=== PATIENT | male | born 1965 | race Caucasian/White ===

== ENCOUNTER → 2016-04-26 | Outpatient (CLI) | payer OTHER ==
[~2016-04-26] MED LIST: ALBU17IN INH; ALLE25CA; AMBI10TA PO; AMBI12.52 PO; ANDR1.62 TD; ASTE0.15; BENA25CA2 PO; BUPR75TA5 PO; BYST10TA PO; CALA240T PO; CARV12.5 PO; CARV6.25 PO; CEPH500T PO; CETI5CHW; CHLO125TA PO; CIPR500T3 PO; CLAR1TAB2 PO; CYMB60CA3 PO; DIPH25CA29 PO; DRIS1CAP PO; DULO30CA PO; EMLA2.5C EX; FAMO20TA PO; FENT12PA TOP; FLON0.054; FLON1SPR; HYDR-3713 PO; HYDR-3719 PO; HYDR12.55 PO; HYDR25TAB PO; IBUP600T26 PO; LIDO1OIN2 TOP; MAXA5TAB10 PO; MELO15TA3 PO; NIAC250C13 PO; OXYC1TAB23 PO; PRED20TAB PO; TEST5GEL2 INJ; TIZA4CAP3 PO; TIZA4TAB3 PO; TRAM50TA2 PO; TRIA1CR TOP; VERA120T2 PO; VERA180C PO; VITA-122 PO; VITA200016 PO; ZOLP5TAB PO
--- NOTE | 2016-05-20 01:54 | ECWPNPC ---
PATIENT NAME: PATRIZIA BARBOZA : 1965 GENDER: MALE VISIT DATE: 04/26/2016 DISCHARGE DATE: 04/26/16 1535 VISIT LOCKED DATE TIME: PHYSICIAN: DUNG ORTIZ RESOURCE: DUNG ORTIZ REASON FOR APPOINTMENT 1. NECK/BACK HISTORY OF PRESENT ILLNESS HISTORY OF PRESENT ILLNESS: PAIN THE PATIENT DESCRIBES THE PAIN... FALL RISK SCREENING: SCREENING :NO FALLS IN THE PAST YEAR TODAY'S VISIT: NOTES: RATES PAIN TODAY 9/10. HAD BEEN ABLE TO INCREASE ACTIVITY. NOTES MARKED INCREASE IN PAIN AFTER THE ACTIVITY. HAS HAD DIFFICULTY WITH [employer] BRAND OF LUNESTA THIS HAS NOT BEEN EFFECTIVE. NOTES POOR SLEEP AFFECTS PAIN CONTROL.. CURRENT MEDICATIONS TAKING BL BLOOD PRESSURE MONITOR STANDARD KIT DIRECTED APPLY TO ARM DX I10 DAILY OR DIRECTED TAKING FLONASE 50 MCG/ACT SUSPENSION 1 SPRAY IN EACH NOSTRIL NASALLY ONCE A DAY, NOTES: ANGELA TAKING CALAN SR 180 MG TABLET EXTENDED RELEASE 1 TABLET ORALLY TWICE A DAY TAKING CHLORTHALIDONE 25 MG TABLET 1/2 TABLET IN THE MORNING ORALLY ONCE A DAY TAKING FAMOTIDINE 40 MG TABLET 1 TABLET ORALLY ONCE A DAY NEEDED TAKING LUNESTA 3 MG TABLET 1 TABLET IMMEDIATELY BEFORE BEDTIME ORALLY BEFORE BEDTIME TAKING TRAMADOL HCL 50 MG TABLET 1 TABLET NEEDED ORALLY EVERY 4-6 HRS PRN PAIN MDD=6 TAKING LIDOCAINE 4 % CREAM APPLY SMALL AMOUNT TO PAINFUL AREAS EXTERNALLY FOUR TIMES DAILY TO HIP AND LOW BACK PAINFUL AREAS TAKING ALBUTEROL SULFATE (2.5 MG/3ML) 0.083% NEBULIZATION SOLUTION 3 ML INHALATION DIRECTED TAKING BENADRYL 25 MG CAPSULE 1 CAPSULE ORALLY ONCEA A DAY TAKING TIZANIDINE HCL 4 MG TABLET 2 CAPSULE ORALLY EVERY 8 HRS TAKING NORCO 10-325 MG TABLET 1 TABLET NEEDED ORALLY DAILY NEEDED FOR PAIN MDD=1 NOT-TAKING IBUPROFEN 600 MG TABLET 1 TABLET ORALLY EVERY 8 HOURS NEEDED HEAD AND NECK PAIN NOT-TAKING NEEDLES & SYRINGES 22G 1/2 INCH NEEDLES AND 3 ML SYRINGES NOT-TAKING METHYLPHENIDATE HCL 10 MG TABLET 1 TABLET ORALLY DAILY MDD=1, NOTES: (RITALIN) NOT-TAKING FLUTICASONE PROPIONATE 50 MCG/ACT SUSPENSION 1 SPRAY IN EACH NOSTRIL NASALLY ONCE A DAY NOT-TAKING LUNESTA 2 MG TABLET 1 TABLET IMMEDIATELY BEFORE BEDTIME ORALLY ONCE A DAY AT BEDTIME NOT-TAKING PREDNISONE 10 MG TABLET 1 TABLET ORALLY TAKE 5 TABX2 DAY, 4 TAB X2, 3 TABX 2 DAY, 2 TABX 2 DAY. 1 TABX 2 DAY NOT-TAKING BUPROPION HCL (XL) 150 MG TABLET EXTENDED RELEASE 24 HOUR 1 TABLET IN THE MORNING ORALLY ONCE A DAY NOT-TAKING VALIUM 5 MG TABLET 1 TABLET ORALLY TAKE 1 TAB ONE HOUR PRIOR TO TEST AND ONE ON ARRRIVAL. MDD=2 NOT-TAKING TRAMADOL HCL 50 MG TABLET 1-2 TABLET ORALLY EVERY 8 HRS PRN PAIN MDD=6 NOT-TAKING MELOXICAM 7.5 MG TABLET 1 TAB ORALLY ONCE A DAY NOT-TAKING ZOLPIDEM TARTRATE 10 MG TABLET 1 TABLET AT BEDTIME NEEDED ORALLY ONCE A DAY, NOTES: ASAD NOT-TAKING LORATADINE 10 MG TABLET 1 TABLET ORALLY ONCE A DAY NOT-TAKING TRIAMCINOLONE ACETONIDE 0.1 % CREAM 1 APPLICATION TO AFFECTED AREA EXTERNALLY TO AREAS ARMS AND LEGS TWICE A DAY NOT-TAKING VITAMIN D-3 2000 CAPSULE 1 CAPSULE ORALLY ONCE A DAY, NOTES: ANGELA NOT-TAKING ZOVIRAX 5 % CREAM 1 APPLICATION TO AFFECTED AREA EXTERNALLY FIVE TIMES A DAY MEDICATION LIST REVIEWED AND RECONCILED WITH THE PATIENT PAST MEDICAL HISTORY IBS URTHERAL STRICTURE HYPERTENSION SEASONAL ALLERGIES PROSTATITIS HYPERCHOLESTEROLEMIA SLEEP 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 FIBROMYALGIA ALLERGIES SULFAMETHOXAZOLE: HIVES: SIDE EFFECTS LISINOPRIL: UNKNOWN LOSARTAN POTASSIUM: NAUSEA/VOMITING: SIDE EFFECTS FENTANYL: NAUSEA/VOMITING: SIDE EFFECTS CYMBALTA EFFEXOR: NAUSEA/VOMITING AMITRIPTYLINE: WAKEFULNESS SAVELLA: MENTAL STAUS CHANGES: SIDE EFFECTS BUPROPION HCL: SLEEP PATTERN ALTERED, VERY LOW ENERGY: SIDE EFFECTS WELLBURTRAN: ALTERED SLEEP PATTERN,EATING ALL THE TIME SEA FOOD: N/V: SIDE EFFECTS SOCIAL HISTORY GENERAL: TOBACCO USE ARE YOU A:NONSMOKER LEARNING BARRIERS / SPECIAL NEEDS ORIENTED TO PLAN OF CARE: PATIENT, PAIN MANAGEMENT PATIENT, ORIENTED TO PLAN OF CARE: PATIENT, PAIN MANAGEMENT PATIENT. NEW PATIENT PAIN DIARY TODAY'S VISITNOTES FROM 0-10, WHAT LEVEL IS YOUR PAIN TODAY?0 PAIN CLINIC PFS, CLERGY, PUBLIC HEALTH REFERRALS PFS REFERRAL NEEDED?NO CLERGY REFERRAL NEEDED?NO PUBLIC HEALTH REFERRAL NEEDED?NO WAS THE PROVIDER NOTIFIED OF ANY PERTINENT INFO?NO PFS REFERRAL NEEDED?NO CLERGY REFERRAL NEEDED?NO PUBLIC HEALTH REFERRAL NEEDED?NO WAS THE PROVIDER NOTIFIED OF ANY PERTINENT INFO?NO REVIEW OF SYSTEMS CONSTITUTIONAL: ANY CHANGE IN YOUR MEDICAL CONDITION? NO . CHILLS YES . FEVER NO . INFECTION: DO YOU HAVE NEW INFECTIONS? NO . DO YOU HAVE HISTORY OF MRSA? YES 1997 . MUSCULOSKELETAL: ANY NEW PATTERNS OF PAIN OR NUMBNESS? YES PAIN IN HANDS, ? ARTHRITIS . GASTROENTEROLOGY: ANY NEW CHANGE IN BOWEL CONTROL? NO . GENITOURINARY: ANY NEW CHANGE IN BLADDER CONTROL? NO . IS THERE A CHANCE YOU COULD BE ? NO . HEMATOLOGY/LYMPH: DO YOU TAKE ANY BLOOD THINNERS? (FOR EXAMPLE- COUMADIN, PLAVIX, AGGRENOX, PLATEL, PRADAXA, OR XARELTO) NO . WHEN WAS YOUR LAST DOSE? DATE: TIME: . NEUROLOGY: HAVE YOU FALLEN IN THE PAST 6 MONTHS? YES OVER 1 MONTHS AGO,NO INJURY . ANY NEW EXTREMITY NUMBNESS OR WEAKNESS? NO . CARDIOLOGY: DO YOU HAVE A PACEMAKER OR DEFIBRILLATOR? NO . RESPIRATORY: HAVE YOU BEEN SICK IN THE PAST WEEK? YES FLU PAST WEEK . FEVER NO . FLU LIKE SYMPTOMS? YES . COUGH YES, PRODUCTIVE MUCUS GREEN, DOING BETTER NOW . INTEGUMENTARY: DO YOU HAVE ANY RASHES OR OPEN SORES? NO . ALLERGIC/IMMUNO: ARE YOU ALLERGIC TO SHELLFISH OR IV DYE? YES . ANY NEW ALLERGIES? NO . PSYCHIATRIC: DO YOU HAVE THOUGHTS OF HURTING YOURSELF OR SOMEONE ELSE? NO . ARE YOU ABUSED, NEGLECTED, OR IN AN UNSAFE ENVIRONMENT? NO . ENDOCRINOLOGY: ARE YOU DIABETIC? NO . OTHER: DO YOU NEED ANY PRESCRIPTIONS? YES, LUNESTA, HYDROCODONE . IF YES, PLEASE LIST: ____ . ANY NEW PROBLEMS WITH YOUR MEDICATIONS? NO . WHEN DID YOU LAST EAT? ____ . WHEN DID YOU LAST DRINK? ____ . WHAT DID YOU LAST DRINK? ____ . NAME OF PERSON DRIVING YOU HOME? ____ . DO YOU HAVE ANY OTHER QUESTIONS OR CONCERNS NO . REVIEWED BY: PROVIDER: DUNG RAMÍREZ . VITAL SIGNS WT 217 LBS, HT 70.5 IN, BMI 30.69 INDEX, BP 172/96 MM HG, HR 85 /MIN, RR 18 /MIN, TEMP 97.9 F, OXYGEN SAT % 98%, NA INITIALS SC 14:33, REVIEWED BY: AD. EXAMINATION GENERAL EXAMINATION: PSYCHALERT , ORIENTED X 3 , APPROPRIATE MOOD AND AFFECT . LUNGS:CLEAR TO AUSCULTATION BILATERALLY. HEART:HEART RATE REGULAR. MUSCULOSKELETAL:BILATERAL OCCIPITAL NOTCH TENDERNESS. POINT TENDERNESS OVER THE CERVICAL SPINE AND LUMBAER SPINOUS PROCESSES, TRIGGER POINTS:, ELICITED WITH PALPATION OVER CERVICAL SPINOUS PROCESSES AND ACROSS THE TRAPEZIUS MUSCLES BILATERALLY. RESTRICTION OF ROM IS NOTED. . ASSESSMENTS FIBROMYALGIA - M79.7 (PRIMARY) CHRONICALLY ON OPIATE THERAPY - Z79.899 TREATMENT FIBROMYALGIA REFILL NORCO TABLET, 10-325 MG, 1 TABLET NEEDED, ORALLY, DAILY NEEDED FOR PAIN MDD=1, 30 DAY(S), 30, REFILLS 0 STOP LUNESTA TABLET, 2 MG, 1 TABLET IMMEDIATELY BEFORE BEDTIME, ORALLY, ONCE A DAY AT BEDTIME, 30 DAY(S), 30 START ESZOPICLONE TABLET, 3 MG, 1 TABLET IMMEDIATELY BEFORE BEDTIME, ORALLY, BEFORE BEDTIME, 30 DAY(S), 30, REFILLS 2 NOTES: DISPOSE OF CURRRENT BOTTLE OF LUNESTA. CONTINUE CURRENT MEDS. CONTINUE EXERCISE AND MOVEMENT. PROCEDURE CODES FA211 ESTABILISHED PATIENT [facility] CHARGE FOLLOW UP 26-28 DAYS ELECTRONICALLY SIGNED BY ALONSO MARSHALL ON 05/19/2016 AT 01:27 PM EST DISCLAIMER : THIS IS A VISIT SUMMARY EXTRACTED FROM THE [employer] CHART. IT IS NOT A COPY OF THE [employer] PROGRESS NOTE. JOSE
== END ==
LOC: M PAIN 14:20
PROVIDERS: ATTEND Nurse Practitioner Family
DX: Z09 Encounter for follow-up examination after completed treatment for conditions other than malignant neoplasm (principal); M79.7 Fibromyalgia; I10 Essential (primary) hypertension; J30.2 Other seasonal allergic rhinitis; E78.00 Pure hypercholesterolemia, unspecified; G47.30 Sleep apnea, unspecified; M47.819 Spondylosis without myelopathy or radiculopathy, site unspecified; M16.12 Unilateral primary osteoarthritis, left hip; Z88.2 Allergy status to sulfonamides; Z88.5 Allergy status to narcotic agent; Z91.013 Allergy to seafood; Z88.8 Allergy status to other drugs, medicaments and biological substances; Z86.14 Personal history of Methicillin resistant Staphylococcus aureus infection; Z79.891 Long term (current) use of opiate analgesic; Z79.899 Other long term (current) drug therapy

== ENCOUNTER → 2016-05-23 | Outpatient (CLI) | payer OTHER ==
--- NOTE | 2016-06-08 01:47 | ECWPNPC ---
PATIENT NAME: PATRIZIA BARBOZA : 1965 GENDER: MALE VISIT DATE: 05/23/2016 DISCHARGE DATE: 05/23/16 1500 VISIT LOCKED DATE TIME: PHYSICIAN: DUNG ORTIZ RESOURCE: DUNG ORTIZ REASON FOR APPOINTMENT 1. NECK/BACK HISTORY OF PRESENT ILLNESS HISTORY OF PRESENT ILLNESS: PAIN THE PATIENT DESCRIBES THE PAIN... FALL RISK SCREENING: SCREENING :NO FALLS IN THE PAST YEAR TODAY'S VISIT: NOTES: RATES PAIN TODAY 5/10. . DESCRIBES PAIN CONSTANT AND GENERALIZED. STATES CURRENT LUNESTA IS WORKING WELL FOR SLEEP. HAD MIGRAINE YESTERDAY.. CURRENT MEDICATIONS TAKING CALAN SR 180 MG TABLET EXTENDED RELEASE 1 TABLET ORALLY TWICE A DAY TAKING CHLORTHALIDONE 25 MG TABLET 1/2 TABLET ORALLY ONCE A DAY TAKING ALBUTEROL SULFATE (2.5 MG/3ML) 0.083% NEBULIZATION SOLUTION 3 ML INHALATION DIRECTED TAKING ESZOPICLONE 3 MG TABLET 1 TABLET IMMEDIATELY BEFORE BEDTIME ORALLY BEFORE BEDTIME TAKING TIZANIDINE HCL 4 MG TABLET 2 CAPSULE ORALLY EVERY 8 HRS TAKING NORCO 10-325 MG TABLET 1 TABLET NEEDED ORALLY DAILY NEEDED FOR PAIN MDD=1 TAKING TRAMADOL HCL 50 MG TABLET 1 TABLET NEEDED ORALLY EVERY 4-6 HRS PRN PAIN MDD=6 TAKING LIDOCAINE 4 % CREAM APPLY SMALL AMOUNT TO PAINFUL AREAS EXTERNALLY FOUR TIMES DAILY TO HIP AND LOW BACK PAINFUL AREAS TAKING BENADRYL 25 MG CAPSULE 1 CAPSULE ORALLY ONCEA A DAY TAKING FLONASE 50 MCG/ACT SUSPENSION 1 SPRAY IN EACH NOSTRIL NASALLY ONCE A DAY, NOTES: ANGELA TAKING FAMOTIDINE 40 MG TABLET 1 TABLET ORALLY ONCE A DAY NEEDED MEDICATION LIST REVIEWED AND RECONCILED WITH THE PATIENT PAST MEDICAL HISTORY IBS URTHERAL STRICTURE HYPERTENSION SEASONAL ALLERGIES PROSTATITIS HYPERCHOLESTEROLEMIA SLEEP 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 FIBROMYALGIA ALLERGIES SULFAMETHOXAZOLE: HIVES: SIDE EFFECTS LISINOPRIL: UNKNOWN LOSARTAN POTASSIUM: NAUSEA/VOMITING: SIDE EFFECTS FENTANYL: NAUSEA/VOMITING: SIDE EFFECTS CYMBALTA EFFEXOR: NAUSEA/VOMITING AMITRIPTYLINE: WAKEFULNESS SAVELLA: MENTAL STAUS CHANGES: SIDE EFFECTS BUPROPION HCL: SLEEP PATTERN ALTERED, VERY LOW ENERGY: SIDE EFFECTS WELLBURTRAN: ALTERED SLEEP PATTERN,EATING ALL THE TIME SEA FOOD: N/V: SIDE EFFECTS SOCIAL HISTORY GENERAL: TOBACCO USE ARE YOU A:NONSMOKER LEARNING BARRIERS / SPECIAL NEEDS ORIENTED TO PLAN OF CARE: PATIENT, PAIN MANAGEMENT PATIENT, ORIENTED TO PLAN OF CARE: PATIENT, PAIN MANAGEMENT PATIENT. NEW PATIENT PAIN DIARY TODAY'S VISITNOTES FROM 0-10, WHAT LEVEL IS YOUR PAIN TODAY?0 PAIN CLINIC PFS, CLERGY, PUBLIC HEALTH REFERRALS PFS REFERRAL NEEDED?NO CLERGY REFERRAL NEEDED?NO PUBLIC HEALTH REFERRAL NEEDED?NO WAS THE PROVIDER NOTIFIED OF ANY PERTINENT INFO?NO PFS REFERRAL NEEDED?NO CLERGY REFERRAL NEEDED?NO PUBLIC HEALTH REFERRAL NEEDED?NO WAS THE PROVIDER NOTIFIED OF ANY PERTINENT INFO?NO REVIEW OF SYSTEMS CONSTITUTIONAL: ANY CHANGE IN YOUR MEDICAL CONDITION? NO . CHILLS NO . FEVER NO . INFECTION: DO YOU HAVE NEW INFECTIONS? RECENT INFLUENZA . DO YOU HAVE HISTORY OF MRSA? NO . MUSCULOSKELETAL: ANY NEW PATTERNS OF PAIN OR NUMBNESS? NO . GASTROENTEROLOGY: ANY NEW CHANGE IN BOWEL CONTROL? NO . GENITOURINARY: ANY NEW CHANGE IN BLADDER CONTROL? NO . IS THERE A CHANCE YOU COULD BE ? NO . HEMATOLOGY/LYMPH: DO YOU TAKE ANY BLOOD THINNERS? (FOR EXAMPLE- COUMADIN, PLAVIX, AGGRENOX, PLATEL, PRADAXA, OR XARELTO) NO . WHEN WAS YOUR LAST DOSE? DATE: TIME: . NEUROLOGY: HAVE YOU FALLEN IN THE PAST 6 MONTHS? YES, JUST FELL WITHOUT ANY WARNING THAT HE WAS GOING TO, HIT HIS BACK ON THE WAY DOWN. BRUISES BUT NO FX - THIS HAPPENED OVER A MONTH AGO. . ANY NEW EXTREMITY NUMBNESS OR WEAKNESS? NO . CARDIOLOGY: DO YOU HAVE A PACEMAKER OR DEFIBRILLATOR? NO . RESPIRATORY: HAVE YOU BEEN SICK IN THE PAST WEEK? NO . FEVER NO . FLU LIKE SYMPTOMS? NO . COUGH NO . INTEGUMENTARY: DO YOU HAVE ANY RASHES OR OPEN SORES? YES, SEVERAL SCABS RIGHT ARM . ALLERGIC/IMMUNO: ARE YOU ALLERGIC TO SHELLFISH OR IV DYE? YES, SHELLFISH . ANY NEW ALLERGIES? NO . PSYCHIATRIC: DO YOU HAVE THOUGHTS OF HURTING YOURSELF OR SOMEONE ELSE? NO . ARE YOU ABUSED, NEGLECTED, OR IN AN UNSAFE ENVIRONMENT? YES, LIVES IN AN APARTMENT BUILDING THAT HAS QUESTIONABLE TENANTS . ENDOCRINOLOGY: ARE YOU DIABETIC? NO . OTHER: DO YOU NEED ANY PRESCRIPTIONS? NO . IF YES, PLEASE LIST: ____ . ANY NEW PROBLEMS WITH YOUR MEDICATIONS? NO . WHEN DID YOU LAST EAT? ____ . WHEN DID YOU LAST DRINK? ____ . WHAT DID YOU LAST DRINK? ____ . NAME OF PERSON DRIVING YOU HOME? ____ . DO YOU HAVE ANY OTHER QUESTIONS OR CONCERNS YES, TRAMADOL AND WILL NEED HYDROCODONE ON 05/30 . REVIEWED BY: PROVIDER: DUNG RAMÍREZ . VITAL SIGNS WT 220 LBS, HT 70.5 IN, BMI 31.12 INDEX, BP 167/93 MM HG, REPEAT BP 147/82 MM HG, HR 82 /MIN, RR 16 /MIN, TEMP 98.5 F, OXYGEN SAT % 97, REVIEWED BY: AD. EXAMINATION GENERAL EXAMINATION: PSYCHALERT , ORIENTED X 3 , APPROPRIATE MOOD AND AFFECT . LUNGS:CLEAR TO AUSCULTATION BILATERALLY. HEART:HEART RATE REGULAR. MUSCULOSKELETAL:BILATERAL OCCIPITAL NOTCH TENDERNESS. POINT TENDERNESS OVER THE CERVICAL SPINE AND LUMBAER SPINOUS PROCESSES, TRIGGER POINTS:, ELICITED WITH PALPATION OVER CERVICAL SPINOUS PROCESSES AND ACROSS THE TRAPEZIUS MUSCLES BILATERALLY. RESTRICTION OF ROM IS NOTED. . ASSESSMENTS FIBROMYALGIA - M79.7 (PRIMARY) CHRONICALLY ON OPIATE THERAPY - Z79.899 HIP PAIN, LEFT - M25.552 TREATMENT FIBROMYALGIA REFILL NORCO TABLET, 10-325 MG, 1 TABLET NEEDED, ORALLY, DAILY NEEDED FOR PAIN MDD=1, 30 DAY(S), 30, REFILLS 0 REFILL TRAMADOL HCL TABLET, 50 MG, 1 TABLET NEEDED, ORALLY, EVERY 4-6 HRS PRN PAIN MDD=6, 30 DAY(S), 180, REFILLS 2 LRY HIP COMPLETE (AP/LAT)[id number] ORTIZ 05/23/2016 2:54:28 PM > INCREASED PAIN, LOSS OF RANGE OF MOTION NOTES: KEEP WALKING. KEEP MOVING. CLINICAL NOTES: ISTOP REGISTRY REVIEWED AND DEMNOSTRATES COMPLLIANCE. BRINGS IN MEDICATIONS WHICH IS APPROPRIATE FOR WHAT WAS DISPENSED. RECENT URINE TOXICOLOGY REVIEWED. NO UNAUTHORIZED MEDICATIONS. NO ILLICIT SUBSTANCES AND PRESCRIBED MEDICATIONS WERE PRESENT. PROCEDURE CODES FA211 ESTABILISHED PATIENT [facility] FACILITY CHARGE DISPOSITION & COMMUNICATION FOLLOW UP ONE MONTH ELECTRONICALLY SIGNED BY ALONSO MARSHALL ON 06/07/2016 AT 02:01 PM EST DISCLAIMER : THIS IS A VISIT SUMMARY EXTRACTED FROM THE [employer] CHART. IT IS NOT A COPY OF THE [employer] PROGRESS NOTE. MTDD
== END ==
LOC: M PAIN 14:00
PROVIDERS: ATTEND Nurse Practitioner Family
DX: Z09 Encounter for follow-up examination after completed treatment for conditions other than malignant neoplasm (principal); G89.29 Other chronic pain; M79.7 Fibromyalgia; M25.552 Pain in left hip; K58.9 Irritable bowel syndrome, unspecified; J30.2 Other seasonal allergic rhinitis; G47.30 Sleep apnea, unspecified; I10 Essential (primary) hypertension; E29.1 Testicular hypofunction; F43.21 Adjustment disorder with depressed mood; M54.2 Cervicalgia; R63.4 Abnormal weight loss; L74.9 Eccrine sweat disorder, unspecified; L20.9 Atopic dermatitis, unspecified; E55.9 Vitamin D deficiency, unspecified; Z88.2 Allergy status to sulfonamides; Z88.8 Allergy status to other drugs, medicaments and biological substances; Z88.5 Allergy status to narcotic agent; Z91.013 Allergy to seafood; Z79.891 Long term (current) use of opiate analgesic; Z79.899 Other long term (current) drug therapy

== ENCOUNTER → 2016-06-19 | Outpatient (CLI) | payer OTHER ==
--- NOTE | 2016-06-19 17:44 | REP ---
Left hip: Two views: History: Soft tissue disorder. Findings: AP and frog-leg views of the left hip are compared with prior left hip radiographs from 05/08/2014. There is mild tendon insertion site spurring on the lesser trochanter unchanged from prior study. Minimal bony hypertrophy of the acetabulum is seen. There is mild femoral head spurring seen. No erosive change seen. Impression: Mild osteoarthritic changes again noted unchanged from prior study. Signed by Kalpesh Lambert MD 06/19/2016 07:46 P
== END ==
LOC: M LAB 16:24
PROVIDERS: ATTEND Nurse Practitioner Family
DX: M79.9 Soft tissue disorder, unspecified (principal); M25.552 Pain in left hip; M16.12 Unilateral primary osteoarthritis, left hip

== ENCOUNTER → 2016-06-20 | Outpatient (CLI) | payer OTHER ==
--- NOTE | 2016-06-22 01:00 | ECWPNPC ---
PATIENT NAME: PATRIZIA BARBOZA : 1965 GENDER: MALE VISIT DATE: 06/20/2016 DISCHARGE DATE: 06/20/16 1512 VISIT LOCKED DATE TIME: PHYSICIAN: DUNG ORTIZ RESOURCE: DUNG ORTIZ REASON FOR APPOINTMENT 1. NECK/BACK HISTORY OF PRESENT ILLNESS HISTORY OF PRESENT ILLNESS: PAIN THE PATIENT DESCRIBES THE PAIN... FALL RISK SCREENING: SCREENING :NO FALLS IN THE PAST YEAR TODAY'S VISIT: NOTES: CURRENTLY ON AUGMENTIN - NO RASH NOTED YET.NOT A BAD MONTH IN GENERAL. RATES PAIN TODAY 7/10. WORST AREA IN NECK AND LEFT HIP.. CURRENT MEDICATIONS TAKING CALAN SR 180 MG TABLET EXTENDED RELEASE 1 TABLET ORALLY TWICE A DAY TAKING CHLORTHALIDONE 25 MG TABLET 1/2 TABLET ORALLY ONCE A DAY, NOTES: FORGETTING TO TAKE TAKING ALBUTEROL SULFATE (2.5 MG/3ML) 0.083% NEBULIZATION SOLUTION 3 ML INHALATION DIRECTED TAKING BENADRYL 25 MG CAPSULE 1 CAPSULE ORALLY ONCEA A DAY TAKING FLONASE 50 MCG/ACT SUSPENSION 1 SPRAY IN EACH NOSTRIL NASALLY ONCE A DAY TAKING FAMOTIDINE 40 MG TABLET 1 TABLET ORALLY ONCE A DAY NEEDED TAKING TIZANIDINE HCL 4 MG TABLET 2 CAPSULE ORALLY EVERY 8 HRS TAKING ESZOPICLONE 3 MG TABLET 1 TABLET IMMEDIATELY BEFORE BEDTIME ORALLY BEFORE BEDTIME TAKING LIDOCAINE 4 % CREAM APPLY SMALL AMOUNT TO PAINFUL AREAS EXTERNALLY FOUR TIMES DAILY TO HIP AND LOW BACK PAINFUL AREAS TAKING NORCO 10-325 MG TABLET 1 TABLET NEEDED ORALLY DAILY NEEDED FOR PAIN MDD=1 TAKING TRAMADOL HCL 50 MG TABLET 1 TABLET NEEDED ORALLY EVERY 4-6 HRS PRN PAIN MDD=6 TAKING AUGMENTIN 875-125 MG TABLET 1 TABLET ORALLY EVERY 12 HRS TAKING CLARITIN 10 MG TABLET 1 TABLET ORALLY ONCE A DAY TAKING PILL BOX 7 DAY - MISCELLANEOUS DIRECTED MEDICATION LIST REVIEWED AND RECONCILED WITH THE PATIENT PAST MEDICAL HISTORY IBS URTHERAL STRICTURE HYPERTENSION SEASONAL ALLERGIES PROSTATITIS HYPERCHOLESTEROLEMIA SLEEP 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 FIBROMYALGIA ALLERGIES SULFAMETHOXAZOLE: HIVES: SIDE EFFECTS LISINOPRIL: UNKNOWN LOSARTAN POTASSIUM: NAUSEA/VOMITING: SIDE EFFECTS FENTANYL: NAUSEA/VOMITING: SIDE EFFECTS CYMBALTA EFFEXOR: NAUSEA/VOMITING AMITRIPTYLINE: WAKEFULNESS SAVELLA: MENTAL STAUS CHANGES: SIDE EFFECTS BUPROPION HCL: SLEEP PATTERN ALTERED, VERY LOW ENERGY: SIDE EFFECTS WELLBURTRAN: ALTERED SLEEP PATTERN,EATING ALL THE TIME SEA FOOD: N/V: SIDE EFFECTS SOCIAL HISTORY GENERAL: TOBACCO USE ARE YOU A:NONSMOKER LEARNING BARRIERS / SPECIAL NEEDS ORIENTED TO PLAN OF CARE: PATIENT, PAIN MANAGEMENT PATIENT, ORIENTED TO PLAN OF CARE: PATIENT, PAIN MANAGEMENT PATIENT. NEW PATIENT PAIN DIARY TODAY'S VISITNOTES FROM 0-10, WHAT LEVEL IS YOUR PAIN TODAY?0 PAIN CLINIC PFS, CLERGY, PUBLIC HEALTH REFERRALS PFS REFERRAL NEEDED?NO CLERGY REFERRAL NEEDED?NO PUBLIC HEALTH REFERRAL NEEDED?NO WAS THE PROVIDER NOTIFIED OF ANY PERTINENT INFO?NO PFS REFERRAL NEEDED?NO CLERGY REFERRAL NEEDED?NO PUBLIC HEALTH REFERRAL NEEDED?NO WAS THE PROVIDER NOTIFIED OF ANY PERTINENT INFO?NO REVIEW OF SYSTEMS CONSTITUTIONAL: ANY CHANGE IN YOUR MEDICAL CONDITION? NO . CHILLS NO . FEVER NO . INFECTION: DO YOU HAVE NEW INFECTIONS? YES SINUS INFECTION WENT TO PRIMARY YESTERDAY . DO YOU HAVE HISTORY OF MRSA? NO . MUSCULOSKELETAL: ANY NEW PATTERNS OF PAIN OR NUMBNESS? NO . GASTROENTEROLOGY: ANY NEW CHANGE IN BOWEL CONTROL? NO . GENITOURINARY: ANY NEW CHANGE IN BLADDER CONTROL? NO . IS THERE A CHANCE YOU COULD BE ? NO . HEMATOLOGY/LYMPH: DO YOU TAKE ANY BLOOD THINNERS? (FOR EXAMPLE- COUMADIN, PLAVIX, AGGRENOX, PLATEL, PRADAXA, OR XARELTO) NO . WHEN WAS YOUR LAST DOSE? DATE: TIME: . NEUROLOGY: HAVE YOU FALLEN IN THE PAST 6 MONTHS? NO . ANY NEW EXTREMITY NUMBNESS OR WEAKNESS? NO . CARDIOLOGY: DO YOU HAVE A PACEMAKER OR DEFIBRILLATOR? NO . RESPIRATORY: HAVE YOU BEEN SICK IN THE PAST WEEK? NO . FEVER NO . FLU LIKE SYMPTOMS? NO . COUGH NO . INTEGUMENTARY: DO YOU HAVE ANY RASHES OR OPEN SORES? NO . ALLERGIC/IMMUNO: ARE YOU ALLERGIC TO SHELLFISH OR IV DYE? NO . ANY NEW ALLERGIES? NO . PSYCHIATRIC: DO YOU HAVE THOUGHTS OF HURTING YOURSELF OR SOMEONE ELSE? NO . ARE YOU ABUSED, NEGLECTED, OR IN AN UNSAFE ENVIRONMENT? YES APARTMENT [employer] STATES ITS AN UNSAFE ENVIRONMENT . ENDOCRINOLOGY: ARE YOU DIABETIC? NO . OTHER: DO YOU NEED ANY PRESCRIPTIONS? NO . IF YES, PLEASE LIST: ____ . ANY NEW PROBLEMS WITH YOUR MEDICATIONS? NO . WHEN DID YOU LAST EAT? ____ . WHEN DID YOU LAST DRINK? ____ . WHAT DID YOU LAST DRINK? ____ . NAME OF PERSON DRIVING YOU HOME? ____ . DO YOU HAVE ANY OTHER QUESTIONS OR CONCERNS NO . REVIEWED BY: PROVIDER: DUNG RAMÍREZ . VITAL SIGNS WT 220 LBS, HT 70.5 IN, BMI 31.12 INDEX, BP 142/72 MM HG, HR 78 /MIN, RR 18 /MIN, TEMP 96.2 F, OXYGEN SAT % 96%, NA INITIALS SC14:26, REVIEWED BY: KG. EXAMINATION GENERAL EXAMINATION: PSYCHALERT , ORIENTED X 3 , APPROPRIATE MOOD AND AFFECT . LUNGS:CLEAR TO AUSCULTATION BILATERALLY. HEART:HEART RATE REGULAR. MUSCULOSKELETAL:BILATERAL OCCIPITAL NOTCH TENDERNESS. POINT TENDERNESS OVER THE CERVICAL SPINE AND LUMBAER SPINOUS PROCESSES, TRIGGER POINTS:, ELICITED WITH PALPATION OVER CERVICAL SPINOUS PROCESSES AND ACROSS THE TRAPEZIUS MUSCLES BILATERALLY. RESTRICTION OF ROM IS NOTED. POINT TENDERNESS OVER LEFT TROCANTER. PAIN REPORTED AT HIP WITH WEIGHT BEARING AND HIP ROTATION. GAIT ANTALGIC. ASSESSMENTS FIBROMYALGIA - M79.7 (PRIMARY) CHRONICALLY ON OPIATE THERAPY - Z79.899 HIP PAIN, LEFT - M25.552 TREATMENT FIBROMYALGIA ARTHROCENTESIS INJECTION LARGE JOINT ([id number] ORTIZ 06/20/2016 3:03:10 PM > LEFT HIP BURSA INJECTION CLINICAL NOTES: ISTOP REGISTRY REVIEWED AND DEMNOSTRATES COMPLLIANCE. BRINGS IN MEDICATIONS WHICH IS APPROPRIATE FOR WHAT WAS DISPENSED. RECENT URINE TOXICOLOGY REVIEWED. NO UNAUTHORIZED MEDICATIONS. NO ILLICIT SUBSTANCES AND PRESCRIBED MEDICATIONS WERE PRESENT. HIP PAIN, LEFT REFILL NORCO TABLET, 10-325 MG, 1 TABLET NEEDED, ORALLY, DAILY NEEDED FOR PAIN MDD=1, 30 DAY(S), 30, REFILLS 0 REFILL ESZOPICLONE TABLET, 3 MG, 1 TABLET IMMEDIATELY BEFORE BEDTIME, ORALLY, BEFORE BEDTIME MDD=1, 30 DAY(S), 30, REFILLS 3 PROCEDURE CODES FA211 ESTABILISHED PATIENT [facility] FACILITY CHARGE DISPOSITION & COMMUNICATION FOLLOW UP 26-28 DAYS ELECTRONICALLY SIGNED BY ALONSO MARSHALL ON 06/20/2016 AT 06:16 PM EST DISCLAIMER : THIS IS A VISIT SUMMARY EXTRACTED FROM THE [employer] CHART. IT IS NOT A COPY OF THE [employer] PROGRESS NOTE. MTDD
== END ==
LOC: M PAIN 14:20
PROVIDERS: ATTEND Nurse Practitioner Family
DX: Z09 Encounter for follow-up examination after completed treatment for conditions other than malignant neoplasm (principal); G89.29 Other chronic pain; M79.7 Fibromyalgia; M25.552 Pain in left hip; I10 Essential (primary) hypertension; E78.00 Pure hypercholesterolemia, unspecified; G47.30 Sleep apnea, unspecified; M47.9 Spondylosis, unspecified; M16.12 Unilateral primary osteoarthritis, left hip; Z88.2 Allergy status to sulfonamides; Z88.5 Allergy status to narcotic agent; Z88.8 Allergy status to other drugs, medicaments and biological substances; Z91.013 Allergy to seafood; Z79.2 Long term (current) use of antibiotics; Z79.891 Long term (current) use of opiate analgesic; Z79.899 Other long term (current) drug therapy

== ENCOUNTER → 2016-07-14 | Outpatient (REF) | payer OTHER ==
[2016-07-14 15:40] LABS: ALBUMIN 3.9 GM/DL (3.2-5.2); ALBUMIN/GLOBULIN RATIO 1.18 (1.00-1.93); ALKALINE PHOSPHATASE 72 U/L (45-117); ALT/SGPT 33 U/L (12-78); ANION GAP 7 MEQ/L (8-16); AST/SGOT 22 U/L (15-37); BILIRUBIN,TOTAL 0.6 MG/DL (0.2-1.0); BLOOD UREA NITROGEN 11 MG/DL (7-18); CALCIUM LEVEL 8.9 MG/DL (8.5-10.1); CARBON DIOXIDE LEVEL 31 MEQ/L (21-32); CHLORIDE LEVEL 101 MEQ/L (98-107); CHOLESTEROL LEVEL 235 MG/DL (<200); CREATININE FOR GFR 1.03 MG/DL (0.70-1.30); GLOMERULAR FILTRATION RATE > 60.0 (>56); GLUCOSE, FASTING 77 MG/DL (70-105); POTASSIUM SERUM 3.8 MEQ/L (3.5-5.1); SODIUM LEVEL 139 MEQ/L (136-145); TOTAL PROTEIN 7.2 GM/DL (6.4-8.2); TRIGLYCERIDES LEVEL 374 MG/DL (<150)
== END ==
LOC: M SFHCSACK 10:57
PROVIDERS: ATTEND Physician Assistant
DX: I10 Essential (primary) hypertension (principal); E29.1 Testicular hypofunction; E55.9 Vitamin D deficiency, unspecified

== ENCOUNTER → 2016-08-24 | Outpatient (CLI) | payer OTHER ==
--- NOTE | 2016-09-06 01:29 | ECWPNPC ---
PATIENT NAME: PATRIZIA BARBOZA : 1965 GENDER: MALE VISIT DATE: 08/24/2016 DISCHARGE DATE: 08/24/16 1131 VISIT LOCKED DATE TIME: PHYSICIAN: DUNG ORTIZ RESOURCE: DUNG ORTIZ REASON FOR APPOINTMENT 1. BACK/NECK HISTORY OF PRESENT ILLNESS HISTORY OF PRESENT ILLNESS: PAIN THE PATIENT DESCRIBES THE PAIN... FALL RISK SCREENING: SCREENING :NO FALLS IN THE PAST YEAR TODAY'S VISIT: NOTES: RATES PAIN TODAY 7/10. WORKING ON GETTING SCHEDULE SET FOR REMOVAL OF 4 TEETH (3 ON LEFT , 1 ON RIGHT). THIS IS THE WORST AREA OF PAIN. . CURRENT MEDICATIONS TAKING CALAN SR 180 MG TABLET EXTENDED RELEASE 1 TABLET ORALLY TWICE A DAY TAKING CHLORTHALIDONE 25 MG TABLET 1/2 TABLET ORALLY ONCE A DAY, NOTES: FORGETTING TO TAKE TAKING ALBUTEROL SULFATE (2.5 MG/3ML) 0.083% NEBULIZATION SOLUTION 3 ML INHALATION DIRECTED TAKING BENADRYL 25 MG CAPSULE 1 CAPSULE ORALLY ONCEA A DAY TAKING FLONASE 50 MCG/ACT SUSPENSION 1 SPRAY IN EACH NOSTRIL NASALLY ONCE A DAY TAKING FAMOTIDINE 40 MG TABLET 1 TABLET ORALLY ONCE A DAY NEEDED TAKING LIDOCAINE 4 % CREAM APPLY SMALL AMOUNT TO PAINFUL AREAS EXTERNALLY FOUR TIMES DAILY TO HIP AND LOW BACK PAINFUL AREAS TAKING TRAMADOL HCL 50 MG TABLET 1 TABLET NEEDED ORALLY EVERY 4-6 HRS PRN PAIN MDD=6 TAKING CLARITIN 10 MG TABLET 1 TABLET ORALLY ONCE A DAY TAKING PROPRANOLOL HCL 20 MG TABLET 1 TABLET ORALLY TWICE A DAY TAKING DRISDOL 50716 UNIT CAPSULE 1 CAPSULE ORALLY ONCE A WEEK TAKING ESZOPICLONE 3 MG TABLET 1 TABLET IMMEDIATELY BEFORE BEDTIME ORALLY BEFORE BEDTIME MDD=1 TAKING TIZANIDINE HCL 4 MG TABLET 2 CAPSULE ORALLY EVERY 8 HRS TAKING NORCO 10-325 MG TABLET 1 TABLET NEEDED ORALLY DAILY NEEDED FOR PAIN MDD=1 DISCONTINUED CEFTIN 500 MG TABLET 1 TABLET ORALLY TWICE A DAY MEDICATION LIST REVIEWED AND RECONCILED WITH THE PATIENT PAST MEDICAL HISTORY IBS URTHERAL STRICTURE HYPERTENSION SEASONAL ALLERGIES PROSTATITIS HYPERCHOLESTEROLEMIA SLEEP 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 YES PT REPORTS HE HAS FOUR TEETH THAT NEED TO BE PULLED, SEEING ORAL SURGEON FOR THIS . CHILLS NO . FEVER NO . INFECTION: DO YOU HAVE NEW INFECTIONS? NO . DO YOU HAVE HISTORY OF MRSA? NO . MUSCULOSKELETAL: ANY NEW PATTERNS OF PAIN OR NUMBNESS? YES PT REPORTS NEW PAIN IN TEETH . GASTROENTEROLOGY: ANY NEW CHANGE IN BOWEL CONTROL? NO . GENITOURINARY: ANY NEW CHANGE IN BLADDER CONTROL? NO . IS THERE A CHANCE YOU COULD BE ? NO . HEMATOLOGY/LYMPH: DO YOU TAKE ANY BLOOD THINNERS? (FOR EXAMPLE- COUMADIN, PLAVIX, AGGRENOX, PLATEL, PRADAXA, OR XARELTO) NO . WHEN WAS YOUR LAST DOSE? DATE: TIME: . NEUROLOGY: HAVE YOU FALLEN IN THE PAST 6 MONTHS? NO . ANY NEW EXTREMITY NUMBNESS OR WEAKNESS? NO . CARDIOLOGY: DO YOU HAVE A PACEMAKER OR DEFIBRILLATOR? NO . RESPIRATORY: HAVE YOU BEEN SICK IN THE PAST WEEK? NO . FEVER NO . FLU LIKE SYMPTOMS? NO . COUGH NO . INTEGUMENTARY: DO YOU HAVE ANY RASHES OR OPEN SORES? NO . ALLERGIC/IMMUNO: ARE YOU ALLERGIC TO SHELLFISH OR IV DYE? NO . ANY NEW ALLERGIES? NO . PSYCHIATRIC: DO YOU HAVE THOUGHTS OF HURTING YOURSELF OR SOMEONE ELSE? NO . ARE YOU ABUSED, NEGLECTED, OR IN AN UNSAFE ENVIRONMENT? NO . ENDOCRINOLOGY: ARE YOU DIABETIC? NO . OTHER: DO YOU NEED ANY PRESCRIPTIONS? NO . IF YES, PLEASE LIST: ____ . ANY NEW PROBLEMS WITH YOUR MEDICATIONS? NO . WHEN DID YOU LAST EAT? ____ . WHEN DID YOU LAST DRINK? ____ . WHAT DID YOU LAST DRINK? ____ . NAME OF PERSON DRIVING YOU HOME? ____ . DO YOU HAVE ANY OTHER QUESTIONS OR CONCERNS NO . PSYCHOLOGY: PATIENT COMPLAINING OF DIFFICULT HOME SITUATION . SLEEP DISTURBANCES AWAKENING WITH TOOTH PAIN . REVIEWED BY: PROVIDER: DUNG RAMÍREZ . VITAL SIGNS WT 220 LBS, HT 70.5 IN, BMI 31.12 INDEX, BP 178/89 MM HG, HR 92 /MIN, RR 18 /MIN, TEMP 98.7 F, OXYGEN SAT % 95%, REVIEWED BY: BUCKY. EXAMINATION GENERAL EXAMINATION: PSYCHALERT , ORIENTED X 3 , APPROPRIATE MOOD AND AFFECT . LUNGS:CLEAR TO AUSCULTATION BILATERALLY. HEART:HEART RATE REGULAR. MUSCULOSKELETAL:TENDER POINTS NOTED ABOVE AND BELOW THE WAIST, BOTH SIDES OF THE BODY, CONSISTANT WITH FIBROMYALGIA. . POINT TENDERNESS OVER LEFT TROCANTER. PAIN REPORTED AT HIP WITH WEIGHT BEARING AND HIP ROTATION. GAIT ANTALGIC. ASSESSMENTS FIBROMYALGIA - M79.7 (PRIMARY) CHRONICALLY ON OPIATE THERAPY - Z79.899 HIP PAIN, LEFT - M25.552 TREATMENT FIBROMYALGIA NOTES: CONTINUE CURRENT MEDS. KEEP WALKING, CONTINUE EFFORTS TO GET DENTAL WORK COMPLETED. CLINICAL NOTES: ISTOP REGISTRY REVIEWED AND DEMNOSTRATES COMPLLIANCE. BRINGS IN MEDICATIONS WHICH IS APPROPRIATE FOR WHAT WAS DISPENSED. RECENT URINE TOXICOLOGY REVIEWED. NO UNAUTHORIZED MEDICATIONS. NO ILLICIT SUBSTANCES AND PRESCRIBED MEDICATIONS WERE PRESENT. PROCEDURE CODES FA211 ESTABILISHED PATIENT [facility] CHARGE DISPOSITION & COMMUNICATION FOLLOW UP 1 MONTH ELECTRONICALLY SIGNED BY ALONSO MARSHALL ON 09/05/2016 AT 08:50 AM EDT DISCLAIMER : THIS IS A VISIT SUMMARY EXTRACTED FROM THE [employer] CHART. IT IS NOT A COPY OF THE [employer] PROGRESS NOTE. JOSE
== END | disposition home or self-care (01) ==
LOC: M PAIN 10:40
PROVIDERS: ATTEND Nurse Practitioner Family
DX: G89.29 Other chronic pain (principal); M79.7 Fibromyalgia; M25.552 Pain in left hip; K58.9 Irritable bowel syndrome, unspecified; I10 Essential (primary) hypertension; J30.9 Allergic rhinitis, unspecified; M51.9 Unspecified thoracic, thoracolumbar and lumbosacral intervertebral disc disorder; E78.00 Pure hypercholesterolemia, unspecified; G47.30 Sleep apnea, unspecified; M19.90 Unspecified osteoarthritis, unspecified site; G25.3 Myoclonus; Z79.899 Other long term (current) drug therapy; Z88.2 Allergy status to sulfonamides; Z88.8 Allergy status to other drugs, medicaments and biological substances; Z91.013 Allergy to seafood

== ENCOUNTER → 2016-09-21 | Outpatient (CLI) | payer OTHER ==
--- NOTE | 2016-10-12 01:08 | ECWPNPC ---
PATIENT NAME: PATRIZIA BARBOZA : 1965 GENDER: MALE VISIT DATE: 09/21/2016 DISCHARGE DATE: 09/21/16 1524 VISIT LOCKED DATE TIME: PHYSICIAN: DUNG ORTIZ RESOURCE: DUNG ORTIZ REASON FOR APPOINTMENT 1. BACK/NECK HISTORY OF PRESENT ILLNESS HISTORY OF PRESENT ILLNESS: PAIN THE PATIENT DESCRIBES THE PAIN... FALL RISK SCREENING: SCREENING :NO FALLS IN THE PAST YEAR TODAY'S VISIT: NOTES: RATES PAIN TODAY 7/10. DESCRIBES PAIN CONSTANT WITH INTERMITTANT EXACERBATIONS. NOTES PAIN IS CENTERED IN JAW FROM RECENT TOOTH EXTRACTION, WELL IN THE LEFT HIP NECK AND LOW BACK. CONTINUES TO STATE THAT HIS LIVING ENVIRONMENT IS UNSAFE DUE TO HIS NEIGHBORS BUT AGAIN HAS TAKEN NO ACTION TO MOVE . CURRENT MEDICATIONS TAKING CALAN SR 180 MG TABLET EXTENDED RELEASE 1 TABLET ORALLY TWICE A DAY TAKING CHLORTHALIDONE 25 MG TABLET 1/2 TABLET ORALLY ONCE A DAY, NOTES: FORGETTING TO TAKE TAKING ALBUTEROL SULFATE (2.5 MG/3ML) 0.083% NEBULIZATION SOLUTION 3 ML INHALATION DIRECTED TAKING BENADRYL 25 MG CAPSULE 1 CAPSULE ORALLY ONCEA A DAY TAKING FLONASE 50 MCG/ACT SUSPENSION 1 SPRAY IN EACH NOSTRIL NASALLY ONCE A DAY TAKING FAMOTIDINE 40 MG TABLET 1 TABLET ORALLY ONCE A DAY NEEDED TAKING LIDOCAINE 4 % CREAM APPLY SMALL AMOUNT TO PAINFUL AREAS EXTERNALLY FOUR TIMES DAILY TO HIP AND LOW BACK PAINFUL AREAS TAKING CLARITIN 10 MG TABLET 1 TABLET ORALLY ONCE A DAY TAKING DRISDOL 83495 UNIT CAPSULE 1 CAPSULE ORALLY ONCE A WEEK TAKING ESZOPICLONE 3 MG TABLET 1 TABLET IMMEDIATELY BEFORE BEDTIME ORALLY BEFORE BEDTIME MDD=1 TAKING NORCO 10-325 MG TABLET 1 TABLET NEEDED ORALLY TAKE 1 TAB Q 8-12 HOURS PRN PAIN MDD=2 TAKING TIZANIDINE HCL 4 MG TABLET 2 CAPSULE ORALLY EVERY 8 HRS TAKING SIMVASTATIN 10 MG TABLET 1 TABLET IN THE EVENING ORALLY ONCE A DAY NOT-TAKING PROPRANOLOL HCL 20 MG TABLET 1 TABLET ORALLY TWICE A DAY MEDICATION LIST REVIEWED AND RECONCILED WITH THE PATIENT PAST MEDICAL HISTORY IBS URTHERAL STRICTURE HYPERTENSION SEASONAL ALLERGIES PROSTATITIS HYPERCHOLESTEROLEMIA SLEEP 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 FIBROMYALGIA ALLERGIES SULFAMETHOXAZOLE: HIVES: SIDE EFFECTS LISINOPRIL: UNKNOWN LOSARTAN POTASSIUM: NAUSEA/VOMITING: SIDE EFFECTS FENTANYL: NAUSEA/VOMITING: SIDE EFFECTS CYMBALTA EFFEXOR: NAUSEA/VOMITING AMITRIPTYLINE: WAKEFULNESS SAVELLA: MENTAL STAUS CHANGES: SIDE EFFECTS BUPROPION HCL: SLEEP PATTERN ALTERED, VERY LOW ENERGY: SIDE EFFECTS WELLBURTRAN: ALTERED SLEEP PATTERN,EATING ALL THE TIME SEA FOOD: N/V: SIDE EFFECTS ENVIRONMENTAL: REDNESS, BREATHING DIFFICULTY: ALLERGY SURGICAL HISTORY URETHERAL STRICTURE VARICOSE TURP ( ROTOR WANDA) 3 TEETH EXTRACTED 09/19/16 HOSPITALIZATION/MAJOR DIAGNOSTIC PROCEDURE SURGERY RELATED IMHU - SUICIDE RISK 10/29 REVIEW OF SYSTEMS REVIEWED BY: PROVIDER: DUNG MATTHEWSP . CONSTITUTIONAL: ANY CHANGE IN YOUR MEDICAL CONDITION? NO . CHILLS NO . FEVER NO . INFECTION: DO YOU HAVE NEW INFECTIONS? NO . DO YOU HAVE HISTORY OF MRSA? NO . MUSCULOSKELETAL: ANY NEW PATTERNS OF PAIN OR NUMBNESS? NO . GASTROENTEROLOGY: ANY NEW CHANGE IN BOWEL CONTROL? NO . GENITOURINARY: ANY NEW CHANGE IN BLADDER CONTROL? NO . IS THERE A CHANCE YOU COULD BE ? NO . HEMATOLOGY/LYMPH: DO YOU TAKE ANY BLOOD THINNERS? (FOR EXAMPLE- COUMADIN, PLAVIX, AGGRENOX, PLATEL, PRADAXA, OR XARELTO) NO . WHEN WAS YOUR LAST DOSE? DATE: TIME: . NEUROLOGY: HAVE YOU FALLEN IN THE PAST 6 MONTHS? YES, OVER 3 MONTHS GO--LOST HIS BALANCE--NO INJURY . ANY NEW EXTREMITY NUMBNESS OR WEAKNESS? NO . CARDIOLOGY: DO YOU HAVE A PACEMAKER OR DEFIBRILLATOR? NO . RESPIRATORY: HAVE YOU BEEN SICK IN THE PAST WEEK? NO . FEVER NO . FLU LIKE SYMPTOMS? NO . COUGH NO . INTEGUMENTARY: DO YOU HAVE ANY RASHES OR OPEN SORES? YES, RASH RIGHT WRIST AND LEFT LEG--? POISON NOAH . ALLERGIC/IMMUNO: ARE YOU ALLERGIC TO SHELLFISH OR IV DYE? YES, SEA FOOD . ANY NEW ALLERGIES? NO . PSYCHIATRIC: DO YOU HAVE THOUGHTS OF HURTING YOURSELF OR SOMEONE ELSE? NO . ARE YOU ABUSED, NEGLECTED, OR IN AN UNSAFE ENVIRONMENT? YES, STATES HE LIVES IN AN UNSAFE NEIGHBORHOOD . ENDOCRINOLOGY: ARE YOU DIABETIC? NO . OTHER: DO YOU NEED ANY PRESCRIPTIONS? NO . IF YES, PLEASE LIST: ____ . ANY NEW PROBLEMS WITH YOUR MEDICATIONS? NO . WHEN DID YOU LAST EAT? ____ . WHEN DID YOU LAST DRINK? ____ . WHAT DID YOU LAST DRINK? ____ . NAME OF PERSON DRIVING YOU HOME? ____ . DO YOU HAVE ANY OTHER QUESTIONS OR CONCERNS NO . ENT: TEETH PAIN HAD 3 LARGE MOLARS REMOVED - STARTING TO FEEL BETTER. HAS 1 MORE TOOTH TO BE PULLED. . VITAL SIGNS WT 221.6 LBS, HT 70.5 IN, BMI 31.34 INDEX, BP 176/96 MM HG, HR 82 /MIN, RR 18 /MIN, TEMP 98.5 F, OXYGEN SAT % 95%, NA INITIALS SC 14:18, REVIEWED BY: AD. EXAMINATION GENERAL EXAMINATION: PSYCHALERT , ORIENTED X 3 , APPROPRIATE MOOD AND AFFECT . LUNGS:CLEAR TO AUSCULTATION BILATERALLY. HEART:HEART RATE REGULAR. MUSCULOSKELETAL:TENDER POINTS NOTED ABOVE AND BELOW THE WAIST, BOTH SIDES OF THE BODY, CONSISTANT WITH FIBROMYALGIA. .. SKIN:FLUSHING SEEN OVER EARS, FACE, CHEST.. ASSESSMENTS FIBROMYALGIA - M79.7 (PRIMARY) CHRONICALLY ON OPIATE THERAPY - Z79.899 HIP PAIN, LEFT - M25.552 TREATMENT FIBROMYALGIA NOTES: CONTINUE CURRENT PAIN MEDS. RESTART PROPANOLOL - CHECK BLOOD PRESSURE 1 WEEK AFTER RESTART. UTOX TODAY. CLINICAL NOTES: ISTOP REGISTRY REVIEWED AND DEMNOSTRATES COMPLLIANCE. BRINGS IN MEDICATIONS WHICH IS APPROPRIATE FOR WHAT WAS DISPENSED. RECENT URINE TOXICOLOGY REVIEWED. NO UNAUTHORIZED MEDICATIONS. NO ILLICIT SUBSTANCES AND PRESCRIBED MEDICATIONS WERE PRESENT. PROCEDURE CODES FA211 ESTABILISHED PATIENT [facility] CHARGE DISPOSITION & COMMUNICATION FOLLOW UP 1 MONTH (REASON: GENERALIZED PAIN) ELECTRONICALLY SIGNED BY ALONSO MARSHALL ON 10/11/2016 AT 08:33 AM EDT DISCLAIMER : THIS IS A VISIT SUMMARY EXTRACTED FROM THE [employer] CHART. IT IS NOT A COPY OF THE [employer] PROGRESS NOTE. JOSE
== END ==
LOC: M PAIN 14:20
PROVIDERS: ATTEND Nurse Practitioner Family
DX: G89.29 Other chronic pain (principal); M79.7 Fibromyalgia; M25.552 Pain in left hip; I10 Essential (primary) hypertension; J30.2 Other seasonal allergic rhinitis; E78.00 Pure hypercholesterolemia, unspecified; M17.12 Unilateral primary osteoarthritis, left knee; K58.9 Irritable bowel syndrome, unspecified; G47.30 Sleep apnea, unspecified; Z79.891 Long term (current) use of opiate analgesic; Z88.2 Allergy status to sulfonamides; Z79.899 Other long term (current) drug therapy; Z88.8 Allergy status to other drugs, medicaments and biological substances; Z91.013 Allergy to seafood

== ENCOUNTER → 2016-10-20 | Outpatient (CLI) | payer OTHER ==
[~2016-10-20] MED LIST changes: +CIPR-249 PO; +DOXY100C37 PO; +HYDR-2809 PO; +IBUP-1022 PO; -IBUP600T26 PO; +LUNE3TAB36 PO; +PROP1TAB29 PO
--- NOTE | 2016-11-17 01:45 | ECWPNPC ---
PATIENT NAME: PATRIZIA BARBOZA : 1965 GENDER: MALE VISIT DATE: 10/20/2016 DISCHARGE DATE: 10/20/16 1539 VISIT LOCKED DATE TIME: PHYSICIAN: DUNG ORTIZ RESOURCE: DUNG ORTIZ REASON FOR APPOINTMENT 1. NECK, BACK HISTORY OF PRESENT ILLNESS HISTORY OF PRESENT ILLNESS: PAIN THE PATIENT DESCRIBES THE PAIN... FALL RISK SCREENING: SCREENING :NO FALLS IN THE PAST YEAR TODAY'S VISIT: NOTES: RATES PAIN TODAY 8/10. REPORTS HAS BEEN HAVING MUCH MORE FIBRO PAIN SINCE STOPPING THE TRAMADOL. WOULD LIKE TO EXPLORE THE OPTIONS. . CURRENT MEDICATIONS TAKING CALAN SR 180 MG TABLET EXTENDED RELEASE 1 TABLET ORALLY TWICE A DAY TAKING CHLORTHALIDONE 25 MG TABLET 1/2 TABLET ORALLY ONCE A DAY, NOTES: FORGETTING TO TAKE TAKING ALBUTEROL SULFATE (2.5 MG/3ML) 0.083% NEBULIZATION SOLUTION 3 ML INHALATION DIRECTED TAKING BENADRYL 25 MG CAPSULE 1 CAPSULE ORALLY ONCEA A DAY TAKING FLONASE 50 MCG/ACT SUSPENSION 1 SPRAY IN EACH NOSTRIL NASALLY ONCE A DAY TAKING FAMOTIDINE 40 MG TABLET 1 TABLET ORALLY ONCE A DAY NEEDED TAKING LIDOCAINE 4 % CREAM APPLY SMALL AMOUNT TO PAINFUL AREAS EXTERNALLY FOUR TIMES DAILY TO HIP AND LOW BACK PAINFUL AREAS TAKING CLARITIN 10 MG TABLET 1 TABLET ORALLY ONCE A DAY TAKING DRISDOL 94259 UNIT CAPSULE 1 CAPSULE ORALLY ONCE A WEEK TAKING ESZOPICLONE 3 MG TABLET 1 TABLET IMMEDIATELY BEFORE BEDTIME ORALLY BEFORE BEDTIME MDD=1 TAKING TIZANIDINE HCL 4 MG TABLET 2 CAPSULE ORALLY EVERY 8 HRS TAKING SIMVASTATIN 10 MG TABLET 1 TABLET IN THE EVENING ORALLY ONCE A DAY TAKING NORCO 10-325 MG TABLET 1 TABLET NEEDED ORALLY TAKE 1 TAB Q 8-12 HOURS PRN PAIN MDD=2 TAKING PROPRANOLOL HCL 20 MG TABLET 1 TABLET ORALLY TWICE A DAY MEDICATION LIST REVIEWED AND RECONCILED WITH THE PATIENT PAST MEDICAL HISTORY IBS URTHERAL STRICTURE HYPERTENSION SEASONAL ALLERGIES PROSTATITIS HYPERCHOLESTEROLEMIA SLEEP 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 FIBROMYALGIA ALLERGIES SULFAMETHOXAZOLE: HIVES: SIDE EFFECTS LISINOPRIL: UNKNOWN LOSARTAN POTASSIUM: NAUSEA/VOMITING: SIDE EFFECTS FENTANYL: NAUSEA/VOMITING: SIDE EFFECTS CYMBALTA EFFEXOR: NAUSEA/VOMITING AMITRIPTYLINE: WAKEFULNESS SAVELLA: MENTAL STAUS CHANGES: SIDE EFFECTS BUPROPION HCL: SLEEP PATTERN ALTERED, VERY LOW ENERGY: SIDE EFFECTS WELLBURTRAN: ALTERED SLEEP PATTERN,EATING ALL THE TIME SEA FOOD: N/V: SIDE EFFECTS ENVIRONMENTAL: REDNESS, BREATHING DIFFICULTY: ALLERGY REVIEW OF SYSTEMS REVIEWED BY: PROVIDER: DUNG RAMÍREZ . CONSTITUTIONAL: ANY CHANGE IN YOUR MEDICAL CONDITION? NO . CHILLS NO . FEVER NO . INFECTION: DO YOU HAVE NEW INFECTIONS? NO . DO YOU HAVE HISTORY OF MRSA? NO . MUSCULOSKELETAL: ANY NEW PATTERNS OF PAIN OR NUMBNESS? YES . GASTROENTEROLOGY: ANY NEW CHANGE IN BOWEL CONTROL? NO . GENITOURINARY: ANY NEW CHANGE IN BLADDER CONTROL? NO . IS THERE A CHANCE YOU COULD BE ? NO . HEMATOLOGY/LYMPH: DO YOU TAKE ANY BLOOD THINNERS? (FOR EXAMPLE- COUMADIN, PLAVIX, AGGRENOX, PLATEL, PRADAXA, OR XARELTO) NO . WHEN WAS YOUR LAST DOSE? DATE: TIME: . NEUROLOGY: HAVE YOU FALLEN IN THE PAST 6 MONTHS? NO . ANY NEW EXTREMITY NUMBNESS OR WEAKNESS? NO . CARDIOLOGY: DO YOU HAVE A PACEMAKER OR DEFIBRILLATOR? NO . RESPIRATORY: HAVE YOU BEEN SICK IN THE PAST WEEK? NO . FEVER NO . FLU LIKE SYMPTOMS? NO . COUGH NO . INTEGUMENTARY: DO YOU HAVE ANY RASHES OR OPEN SORES? NO . ALLERGIC/IMMUNO: ARE YOU ALLERGIC TO SHELLFISH OR IV DYE? YES . ANY NEW ALLERGIES? NO . PSYCHIATRIC: DO YOU HAVE THOUGHTS OF HURTING YOURSELF OR SOMEONE ELSE? NO . ARE YOU ABUSED, NEGLECTED, OR IN AN UNSAFE ENVIRONMENT? NO . ENDOCRINOLOGY: ARE YOU DIABETIC? NO . OTHER: DO YOU NEED ANY PRESCRIPTIONS? NO . IF YES, PLEASE LIST: ____ . ANY NEW PROBLEMS WITH YOUR MEDICATIONS? NO . WHEN DID YOU LAST EAT? ____ . WHEN DID YOU LAST DRINK? ____ . WHAT DID YOU LAST DRINK? ____ . NAME OF PERSON DRIVING YOU HOME? ____ . DO YOU HAVE ANY OTHER QUESTIONS OR CONCERNS NO . VITAL SIGNS WT 222 LBS,8 LBS, HT 70.5 IN, BP 117/73 MM HG, HR 60 /MIN, RR 18 /MIN, TEMP 97.7 F, OXYGEN SAT % 97, NA INITIALS AW 1502. EXAMINATION GENERAL EXAMINATION: PSYCHALERT , ORIENTED X 3 , APPROPRIATE MOOD AND AFFECT . LUNGS:CLEAR TO AUSCULTATION BILATERALLY. HEART:HEART RATE REGULAR. MUSCULOSKELETAL:TENDER POINTS NOTED ABOVE AND BELOW THE WAIST, BOTH SIDES OF THE BODY, CONSISTANT WITH FIBROMYALGIA. .. SKIN:PALE, SKIN WARM, DRY. ASSESSMENTS FIBROMYALGIA - M79.7 (PRIMARY) CHRONICALLY ON OPIATE THERAPY - Z79.899 HIP PAIN, LEFT - M25.552 TREATMENT FIBROMYALGIA START GABAPENTIN CAPSULE, 300 MG, 1 CAPSULE, ORALLY, THREE TIMES A DAY, 30 DAY(S), 90, REFILLS 1 NOTES: CONTINUE CURRRENT MEDS. DISCUSSION HELD REGARDING MEDICATIONS AND OTHER OPTIONS FOR PAIN CONTROL. EXERCISE AND REGULAR ACTIVITY AND SOCIAL ENGAGEMENT ENCOURAGED. WILL CONSIDER TRIGGER POINT INJECTIONS IF A TARGET PRESENTS FPR TREATMENT. CLINICAL NOTES: ISTOP REGISTRY REVIEWED AND DEMNOSTRATES COMPLLIANCE. BRINGS IN MEDICATIONS WHICH IS APPROPRIATE FOR WHAT WAS DISPENSED. RECENT URINE TOXICOLOGY REVIEWED. NO UNAUTHORIZED MEDICATIONS. NO ILLICIT SUBSTANCES AND PRESCRIBED MEDICATIONS WERE PRESENT. PROCEDURE CODES FA211 ESTABILISHED PATIENT [facility] FACILITY CHARGE DISPOSITION & COMMUNICATION FOLLOW UP 6-8 WEEKS (REASON: FIBRO/BACK PAIN) ELECTRONICALLY SIGNED BY ALONSO MARSHALL ON 11/16/2016 AT 08:47 AM EDT DISCLAIMER : THIS IS A VISIT SUMMARY EXTRACTED FROM THE [employer] CHART. IT IS NOT A COPY OF THE [employer] PROGRESS NOTE. JOSE
== END ==
LOC: M PAIN 14:40
PROVIDERS: ATTEND Nurse Practitioner Family
DX: G89.29 Other chronic pain (principal); M79.7 Fibromyalgia; M25.552 Pain in left hip; K58.9 Irritable bowel syndrome, unspecified; I10 Essential (primary) hypertension; J30.2 Other seasonal allergic rhinitis; E78.00 Pure hypercholesterolemia, unspecified; M16.12 Unilateral primary osteoarthritis, left hip; Z88.8 Allergy status to other drugs, medicaments and biological substances; Z91.013 Allergy to seafood; Z88.2 Allergy status to sulfonamides; Z88.5 Allergy status to narcotic agent; Z79.891 Long term (current) use of opiate analgesic; Z79.899 Other long term (current) drug therapy

== ENCOUNTER → 2016-11-22 | Outpatient (REF) | payer OTHER | LOC: M SFHCSACK 10:40 | PROVIDERS: ATTEND Physician Assistant | DX: I10 Essential (primary) hypertension (principal); E78.2 Mixed hyperlipidemia; E55.9 Vitamin D deficiency, unspecified ==

== ENCOUNTER 2016-11-28 01:41 | Emergency (ER) | payer OTHER ==
[~2016-11-28] VITALS: Ht 177.8 cm; Wt 104.5 kg
[~2016-11-28 01:41] MED LIST changes: -CIPR-249 PO; -DOXY100C37 PO; -HYDR-2809 PO; -LUNE3TAB36 PO; -PROP1TAB29 PO
[2016-11-28] MEDS ORDERED: LUNE3TAB36 PO (01:57)
[2016-11-28 02:25] LABS: MICROSCOPIC INDICATED? MAN YES (NO)
[2016-11-28 02:33] LABS: WBC, URINE NONE SEEN /hpf (0-3)
[2016-11-28 02:34] LABS: BACTERIA, URINE NONE SEEN; HYALINE CAST, URINE NONE SEEN /lpf (0-1); MICROSCOPIC EXAM PERFORMED; SQUAMOUS EPITHELIAL CELL URINE SMALL AMOUNT /hpf (SMALL AMT)
[2016-11-28] MEDS ORDERED: ONDANSETRON 4MG/2ML VIAL (J2405) IV ONE (06:30)
[2016-11-28] MEDS ORDERED: KETOROLAC 30 MG/ML VIAL (J1885) IV ONE (06:30)
[2016-11-28] MEDS ORDERED: NS 1,000 ML IV ONE (06:30)
[2016-11-28 07:46] LABS: BASO # 0.1 K/mm3 (0.0-0.2); BASO % 0.6 % (0.0-1.0); EOS % 0.3 % (0.0-3.0); LARGE UNSTAINED CELL # 0.2 K/mm3 (0.0-0.4); LARGE UNSTAINED CELL % 1.8 % (0.0-4.0); LYMPH # 1.3 K/mm3 (1.5-4.5); LYMPH % 11.8 % (24.0-44.0); MEAN CORPUSCULAR HEMOGLOBIN 31.7 pg (27.0-33.0); MEAN CORPUSCULAR HGB CONC 33.5 g/dl (32.0-36.5); MEAN CORPUSCULAR VOLUME 94.8 fl (80.0-96.0); MONO # 0.4 K/mm3 (0.0-0.8); MONO % 4.1 % (0.0-5.0); NEUTROPHILS # 7.9 K/mm3 (1.8-7.7); NEUTROPHILS % 81.5 % (36.0-66.0); PLATELET COUNT, AUTOMATED 234 k/mm3 (150-450); RED CELL DISTRIBUTION WIDTH 12.1 % (11.5-14.5); WHITE BLOOD COUNT 9.6 K/mm3 (4.0-10.0)
[2016-11-28 08:00] LABS: ALBUMIN 3.9 GM/DL (3.2-5.2); ALBUMIN/GLOBULIN RATIO 0.81 (1.00-1.93); ALKALINE PHOSPHATASE 99 U/L (45-117); ALT/SGPT 59 U/L (12-78); ANION GAP 9 MEQ/L (8-16); AST/SGOT 28 U/L (15-37); BILIRUBIN,DIRECT 0.1 MG/DL (0.0-0.2); BILIRUBIN,TOTAL 0.5 MG/DL (0.2-1.0); BLOOD UREA NITROGEN 6 MG/DL (7-18); CALCIUM LEVEL 8.8 MG/DL (8.5-10.1); CARBON DIOXIDE LEVEL 29 MEQ/L (21-32); CHLORIDE LEVEL 104 MEQ/L (98-107); CREATININE FOR GFR 1.06 MG/DL (0.70-1.30); GLOMERULAR FILTRATION RATE > 60.0 (>56); GLUCOSE, FASTING 117 MG/DL (70-105); POTASSIUM SERUM 3.7 MEQ/L (3.5-5.1); SODIUM LEVEL 142 MEQ/L (136-145); TOTAL PROTEIN 8.7 GM/DL (6.4-8.2)
[2016-11-28] MEDS ORDERED: CIPROFLOXACIN 400 MG in APPROPRIATE DILUENT 1 EA IV ONE (08:15)
[2016-11-28] MEDS ORDERED: cefTRIAXone SOD 1 GM in D5W MINI-BAG PLUS 50 ML IV ONE (08:15)
[2016-11-28] MEDS ORDERED: DOXY100C37 PO (10:31)
[2016-11-28] MEDS ORDERED: CIPR-249 PO (10:31)
[2016-11-28 10:40] VITALS: BP 173/92
--- NOTE | 2016-11-28 16:09 | ECGEPIP ---
Stationary ECG Study [facility] - ED Test Date: 2016-11-28 Pat Name: PATRIZIA BARBOZA Department: Room: - Gender: M Regulatory Affairs Intern: suresh : 1965 Requested By: LIBRA DEXTER PA-C. Order Number: [id number] Reading MD: Benito Rawls Measurements Intervals [place] Rate: 85 P: 47 TX: 135 QRS: 0 QRSD: 90 T: 16 QT: 389 QTc: 464 Interpretive Statements SINUS RHYTHM NONSPECIFIC ST & T-WAVE ABNORMALITY SIMILAR TO 09/01/15 Electronically Signed On 11-28-2016 16:08:56 EDT by Benito Rawls
[2016-12-01 00:06] LABS: Lyme Disease IgG Ab 18 kDa Ban Absent (.); Lyme Disease IgG Ab 23 kDa Ban Present (.); Lyme Disease IgG Ab 28 kDa Ban Absent (.); Lyme Disease IgG Ab 30 kDa Ban Absent (.); Lyme Disease IgG Ab 39 kDa Ban Present (.); Lyme Disease IgG Ab 41 kDa Ban Present (.); Lyme Disease IgG Ab 45 kDa Ban Present (.); Lyme Disease IgG Ab 58 kDa Ban Absent (.); Lyme Disease IgG Ab 66 kDa Ban Absent (.); Lyme Disease IgG Ab 93 kDa Ban Absent (.); Lyme Disease IgG West Blot Int Negative (.); Lyme Disease IgG/IgM Antibodie 1.22 ISR (0.00-0.90); Lyme Disease IgM Ab 23 kDa Ban Present (.); Lyme Disease IgM Ab 39 kDa Ban Absent (.); Lyme Disease IgM Ab 41 kDa Ban Present (.); Lyme Disease IgM Ab Quantitati 5.58 index (0.00-0.79); Lyme Disease IgM West Blot Int Positive (.)
== END 2016-11-28 10:44 | disposition home or self-care (01) ==
LOC: M ED 01:41
DX: N41.9 Inflammatory disease of prostate, unspecified (principal); R51 Headache; Z88.2 Allergy status to sulfonamides; Z91.013 Allergy to seafood; Z79.899 Other long term (current) drug therapy
CPT/HCPCS: 36415; 80048; 80076; 81000; 84153; 85025; 86617; 87040; 87491; 87591; 93000; 96361; 96365; 96366; 96368; 96375; 99284; J0696; J0744; J1885; J2405

== ENCOUNTER → 2016-12-01 | Outpatient (CLI) | payer OTHER ==
[~2016-12-01] MED LIST changes: +CIPR-249 PO; +DOXY100C37 PO; +HYDR-2809 PO; +LUNE3TAB36 PO; +PROP1TAB29 PO
--- NOTE | 2016-12-17 23:52 | ECWPNPC ---
PATIENT NAME: PATRIZIA BARBOZA : 1965 GENDER: MALE VISIT DATE: 12/01/2016 DISCHARGE DATE: 12/01/16 1546 VISIT LOCKED DATE TIME: PHYSICIAN: DUNG ORTIZ RESOURCE: DUNG ORTIZ REASON FOR APPOINTMENT 1. FIBRO/BACK PAIN HISTORY OF PRESENT ILLNESS TODAY'S VISIT: NOTES: RATES PAIN TODAY 8/10. REPORTS PAIN WITH MOVEMENT.REPORTS RESTARTED TRAMADOL FOR FIBROMYALGIA WHICH IS EFFECTIVE TO KEEP THIS PAIN MANAGED. HISTORY OF PRESENT ILLNESS: PAIN THE PATIENT DESCRIBES THE PAIN... FALL RISK SCREENING: SCREENING :NO FALLS IN THE PAST YEAR CURRENT MEDICATIONS TAKING ALBUTEROL SULFATE (2.5 MG/3ML) 0.083% NEBULIZATION SOLUTION 3 ML INHALATION DIRECTED TAKING BENADRYL 25 MG CAPSULE 1 CAPSULE ORALLY ONCEA A DAY TAKING FLONASE 50 MCG/ACT SUSPENSION 1 SPRAY IN EACH NOSTRIL NASALLY ONCE A DAY TAKING LIDOCAINE 4 % CREAM APPLY SMALL AMOUNT TO PAINFUL AREAS EXTERNALLY FOUR TIMES DAILY TO HIP AND LOW BACK PAINFUL AREAS TAKING DRISDOL 42606 UNIT CAPSULE 1 CAPSULE ORALLY ONCE A WEEK TAKING SIMVASTATIN 10 MG TABLET 1 TABLET IN THE EVENING ORALLY ONCE A DAY TAKING TIZANIDINE HCL 4 MG TABLET 2 CAPSULE ORALLY EVERY 8 HRS TAKING NORCO 10-325 MG TABLET 1 TABLET NEEDED ORALLY TAKE 1 TAB Q 8-12 HOURS PRN PAIN MDD=2 TAKING ESZOPICLONE 3 MG TABLET 1 TABLET IMMEDIATELY BEFORE BEDTIME ORALLY BEFORE BEDTIME MDD=1 TAKING CALAN SR 180 MG TABLET EXTENDED RELEASE 1 TABLET ORALLY TWICE A DAY TAKING ULTRAM 50 MG TABLET 1 TABLET NEEDED FOR PAIN ORALLY EVERY 8HRSPRN MDD3 TAKING DOXYCYCLINE MONOHYDRATE 100 MG CAPSULE 1 CAPSULE ORALLY EVERY 12 HRS TAKING CIPROFLOXACIN HCL 500 MG TABLET 1 TABLET ORALLY TWICE A DAY TAKING CHLORTHALIDONE 25 MG TABLET 1/2 TABLET ORALLY ONCE A DAY TAKING PROPRANOLOL HCL 20 MG TABLET 1 TABLET ORALLY TWICE A DAY NOT-TAKING FAMOTIDINE 40 MG TABLET 1 TABLET ORALLY ONCE A DAY NEEDED NOT-TAKING CLARITIN 10 MG TABLET 1 TABLET ORALLY ONCE A DAY DISCONTINUED GABAPENTIN 300 MG CAPSULE 1 CAPSULE ORALLY THREE TIMES A DAY MEDICATION LIST REVIEWED AND RECONCILED WITH THE PATIENT PAST MEDICAL HISTORY IBS URTHERAL STRICTURE HYPERTENSION SEASONAL ALLERGIES PROSTATITIS HYPERCHOLESTEROLEMIA SLEEP 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 FIBROMYALGIA ALLERGIES SULFAMETHOXAZOLE: HIVES: SIDE EFFECTS LISINOPRIL: UNKNOWN LOSARTAN POTASSIUM: NAUSEA/VOMITING: SIDE EFFECTS FENTANYL: NAUSEA/VOMITING: SIDE EFFECTS CYMBALTA EFFEXOR: NAUSEA/VOMITING AMITRIPTYLINE: WAKEFULNESS SAVELLA: MENTAL STAUS CHANGES: SIDE EFFECTS BUPROPION HCL: SLEEP PATTERN ALTERED, VERY LOW ENERGY: SIDE EFFECTS WELLBURTRAN: ALTERED SLEEP PATTERN,EATING ALL THE TIME SEA FOOD: N/V: SIDE EFFECTS ENVIRONMENTAL: REDNESS, BREATHING DIFFICULTY: ALLERGY REVIEW OF SYSTEMS REVIEWED BY: PROVIDER: DUNG RAMÍREZ . CONSTITUTIONAL: ANY CHANGE IN YOUR MEDICAL CONDITION? YES, BEEN TO ER FOR LYME DISEASE, AND PROSTITIS. . CHILLS NO . FEVER NO . INFECTION: DO YOU HAVE NEW INFECTIONS? BEING CHECKED FOR LYME DISEASE . DO YOU HAVE HISTORY OF MRSA? NO . MUSCULOSKELETAL: ANY NEW PATTERNS OF PAIN OR NUMBNESS? NO . GASTROENTEROLOGY: ANY NEW CHANGE IN BOWEL CONTROL? NO . GENITOURINARY: ANY NEW CHANGE IN BLADDER CONTROL? YES, CHILLS AND FEVER, UTI SYMPTOMS.WENT TO ER ANTIBIOTICS. . IS THERE A CHANCE YOU COULD BE ? NO . HEMATOLOGY/LYMPH: DO YOU TAKE ANY BLOOD THINNERS? (FOR EXAMPLE- COUMADIN, PLAVIX, AGGRENOX, PLATEL, PRADAXA, OR XARELTO) NO . WHEN WAS YOUR LAST DOSE? DATE: TIME: . NEUROLOGY: HAVE YOU FALLEN IN THE PAST 6 MONTHS? NO . ANY NEW EXTREMITY NUMBNESS OR WEAKNESS? NO . CARDIOLOGY: DO YOU HAVE A PACEMAKER OR DEFIBRILLATOR? NO . RESPIRATORY: HAVE YOU BEEN SICK IN THE PAST WEEK? NO . FEVER NO . FLU LIKE SYMPTOMS? NO . COUGH NO . INTEGUMENTARY: DO YOU HAVE ANY RASHES OR OPEN SORES? YES, HAD A BULLSEYE FROM [place], AND HAS A RASH. . ALLERGIC/IMMUNO: ARE YOU ALLERGIC TO SHELLFISH OR IV DYE? YES, SHELLFISH . ANY NEW ALLERGIES? NO . PSYCHIATRIC: DO YOU HAVE THOUGHTS OF HURTING YOURSELF OR SOMEONE ELSE? NO . ARE YOU ABUSED, NEGLECTED, OR IN AN UNSAFE ENVIRONMENT? YES, HOME SURROUNDINGS ARE ALWAYS UNSAFE. . ENDOCRINOLOGY: ARE YOU DIABETIC? NO . OTHER: DO YOU NEED ANY PRESCRIPTIONS? NO . IF YES, PLEASE LIST: ____ . ANY NEW PROBLEMS WITH YOUR MEDICATIONS? YES, GABAPENTIN FAILED. WENT BACK TO TRAMADOL. . WHEN DID YOU LAST EAT? ____ . WHEN DID YOU LAST DRINK? ____ . WHAT DID YOU LAST DRINK? ____ . NAME OF PERSON DRIVING YOU HOME? ____ . DO YOU HAVE ANY OTHER QUESTIONS OR CONCERNS YES, NEEDS TRAMADOL DOSES INCREASED. . UROLOGY: GENERAL SEEN IN ER FOR NEW ONSET POSSIBLE PROSTATITIS AND WAS STARTED ON ABX. TO SEE UROLOGY NEXT WEEK. . VITAL SIGNS WT 215 LBS, HT 70.5 IN, BMI 30.41 INDEX, BP 180/102 MM HG, REPEAT BP 163/97 MM HG, HR 72 /MIN, RR 18 /MIN, TEMP 98 F, OXYGEN SAT % 97%, NA INITIALS AW 1454, REVIEWED BY: [facility] NURSE KNOW ABOUT BP B/P RECHECKED. CM. EXAMINATION GENERAL EXAMINATION: PSYCHALERT , ORIENTED X 3 , APPROPRIATE MOOD AND AFFECT . LUNGS:CLEAR TO AUSCULTATION BILATERALLY. HEART:HEART RATE REGULAR. MUSCULOSKELETAL:TENDER POINTS NOTED ABOVE AND BELOW THE WAIST, BOTH SIDES OF THE BODY, CONSISTANT WITH FIBROMYALGIA. .. SKIN:FLUSHED, HIVES NOTED ON ABD AND ARMS. ASSESSMENTS FIBROMYALGIA - M79.7 (PRIMARY) CHRONIC PRESCRIPTION OPIATE USE - Z79.891 TREATMENT FIBROMYALGIA REFILL NORCO TABLET, 10-325 MG, 1 TABLET NEEDED, ORALLY, TAKE 1 TAB Q 8-12 HOURS PRN PAIN MDD=2, 30 DAY(S), 60, REFILLS 0 START TRAMADOL HCL TABLET, 50 MG, 1 -2 TABLET NEEDED, ORALLY, EVERY 6 HRS PRN PAIN MDD=6, 30 DAY(S), 180, REFILLS 2 NOTES: CONTINUE CURRENT MEDSTAKE BENEDRYL WHEN YOU GET HOME. CLINICAL NOTES: ISTOP REGISTRY REVIEWED AND DEMNOSTRATES COMPLLIANCE. BRINGS IN MEDICATIONS WHICH IS APPROPRIATE FOR WHAT WAS DISPENSED. RECENT URINE TOXICOLOGY REVIEWED. NO UNAUTHORIZED MEDICATIONS. NO ILLICIT SUBSTANCES AND PRESCRIBED MEDICATIONS WERE PRESENT. PROCEDURE CODES [id number] ESTABILISHED PATIENT [facility]AC[facility] CHARGE DISPOSITION & COMMUNICATION FOLLOW UP 2 MONTHS (REASON: FIBRO) ELECTRONICALLY SIGNED BY ALONSO MARSHALL ON 12/17/2016 AT 02:24 PM EDT DISCLAIMER : THIS IS A VISIT SUMMARY EXTRACTED FROM THE [employer] CHART. IT IS NOT A COPY OF THE [employer] PROGRESS NOTE. STIVEND
== END ==
LOC: M PAIN 14:45
PROVIDERS: ATTEND Nurse Practitioner Family
DX: G89.29 Other chronic pain (principal); M79.7 Fibromyalgia; I10 Essential (primary) hypertension; J30.2 Other seasonal allergic rhinitis; M46.90 Unspecified inflammatory spondylopathy, site unspecified; E78.00 Pure hypercholesterolemia, unspecified; G47.00 Insomnia, unspecified; M16.12 Unilateral primary osteoarthritis, left hip; K58.9 Irritable bowel syndrome, unspecified; Z88.2 Allergy status to sulfonamides; Z79.891 Long term (current) use of opiate analgesic; Z91.013 Allergy to seafood; Z88.8 Allergy status to other drugs, medicaments and biological substances; Z79.899 Other long term (current) drug therapy

== ENCOUNTER → 2017-01-12 | Outpatient (CLI) | payer OTHER ==
[2017-01-12 14:09] LABS: BASO # 0.1 10^3/uL (0.0-0.2); EOS # 0.2 10^3/uL (0.0-0.50); EOS % 2.2 % (0.0-3.0); IMMATURE GRANULOCYTE % 0.3 % (0-0); LYMPH # 2.6 10^3/uL (1.5-4.5); LYMPH % 28.1 % (24.0-44.0); MEAN CORPUSCULAR HEMOGLOBIN 30.7 pg (27.0-33.0); MEAN CORPUSCULAR HGB CONC 33.9 g/dl (32.0-36.5); MEAN CORPUSCULAR VOLUME 90.5 fl (80.0-96.0); MONO # 0.6 10^3/uL (0.0-0.8); MONO % 6.9 % (0.0-5.0); NEUTROPHILS # 5.6 10^3/uL (1.8-7.7); NEUTROPHILS % 61.5 % (36.0-66.0); PLATELET COUNT, AUTOMATED 272 10^3/uL (150-450); RED CELL DISTRIBUTION WIDTH 11.9 % (11.5-14.5); WHITE BLOOD COUNT 9.2 10^3/uL (4.0-10.0)
[2017-01-12 14:43] LABS: ALBUMIN/GLOBULIN RATIO 1.18 (1.00-1.93); ALKALINE PHOSPHATASE 61 U/L (45-117); ALT/SGPT 42 U/L (12-78); ANION GAP 5 MEQ/L (8-16); AST/SGOT 16 U/L (15-37); BILIRUBIN,TOTAL 0.7 MG/DL (0.2-1.0); BLOOD UREA NITROGEN 12 MG/DL (7-18); CALCIUM LEVEL 9.3 MG/DL (8.5-10.1); CARBON DIOXIDE LEVEL 32 MEQ/L (21-32); CHLORIDE LEVEL 102 MEQ/L (98-107); CHOLESTEROL LEVEL 223 MG/DL (<200); CREATININE FOR GFR 1.11 MG/DL (0.70-1.30); GLOMERULAR FILTRATION RATE > 60.0 (>56); GLUCOSE, FASTING 91 MG/DL (70-105); POTASSIUM SERUM 4.1 MEQ/L (3.5-5.1); SODIUM LEVEL 139 MEQ/L (136-145); TOTAL PROTEIN 7.4 GM/DL (6.4-8.2); TRIGLYCERIDES LEVEL 323 MG/DL (<150)
== END ==
LOC: M LAB 13:31
PROVIDERS: ATTEND Physician Assistant
DX: I10 Essential (primary) hypertension (principal); E55.9 Vitamin D deficiency, unspecified

== ENCOUNTER 2017-02-02 01:03 | Emergency (ER) | payer OTHER ==
[~2017-02-02] VITALS: Ht 177.8 cm; Wt 93.0 kg
[~2017-02-02 01:03] MED LIST changes: -HYDR-2809 PO; -PROP1TAB29 PO
[2017-02-02] MEDS ORDERED: PROP1TAB29 PO (01:14)
[2017-02-02] MEDS ORDERED: HYDR-3719 PO (01:14)
[2017-02-02] MEDS ORDERED: HYDR-2809 PO (01:14)
[2017-02-02 02:35] VITALS: BP 177/104
[2017-02-02 02:46] LABS: BASO % 0.5 % (0.0-1.0); EOS # 0.1 10^3/uL (0.0-0.50); EOS % 1.4 % (0.0-3.0); IMMATURE GRANULOCYTE % 0.1 % (0-0); LYMPH # 1.9 10^3/uL (1.5-4.5); LYMPH % 24.7 % (24.0-44.0); MEAN CORPUSCULAR HEMOGLOBIN 30.7 pg (27.0-33.0); MEAN CORPUSCULAR HGB CONC 34.1 g/dl (32.0-36.5); MEAN CORPUSCULAR VOLUME 90.1 fl (80.0-96.0); MONO # 0.6 10^3/uL (0.0-0.8); MONO % 7.6 % (0.0-5.0); NEUTROPHILS # 5.1 10^3/uL (1.8-7.7); NEUTROPHILS % 65.7 % (36.0-66.0); PLATELET COUNT, AUTOMATED 292 10^3/uL (150-450); RED CELL DISTRIBUTION WIDTH 12.1 % (11.5-14.5); WHITE BLOOD COUNT 7.8 10^3/uL (4.0-10.0)
[2017-02-02 02:56] LABS: ALBUMIN 4.2 GM/DL (3.2-5.2); ALBUMIN/GLOBULIN RATIO 1.05 (1.00-1.93); ALKALINE PHOSPHATASE 72 U/L (45-117); ALT/SGPT 35 U/L (12-78); AMYLASE 55 U/L (25-115); ANION GAP 3 MEQ/L (8-16); AST/SGOT 21 U/L (15-37); BILIRUBIN,DIRECT 0.1 MG/DL (0.0-0.2); BILIRUBIN,TOTAL 0.6 MG/DL (0.2-1.0); BLOOD UREA NITROGEN 12 MG/DL (7-18); CALCIUM LEVEL 8.8 MG/DL (8.5-10.1); CARBON DIOXIDE LEVEL 33 MEQ/L (21-32); CHLORIDE LEVEL 102 MEQ/L (98-107); CREATININE FOR GFR 1.16 MG/DL (0.70-1.30); GLOMERULAR FILTRATION RATE > 60.0 (>56); GLUCOSE, FASTING 91 MG/DL (70-105); POTASSIUM SERUM 3.5 MEQ/L (3.5-5.1); SODIUM LEVEL 138 MEQ/L (136-145); TOTAL PROTEIN 8.2 GM/DL (6.4-8.2)
[2017-02-02] MEDS ORDERED: GASTROGRAFIN SOLUTION 30ML (Q9963) PO ONE ×2 (03:00→03:30)
[2017-02-02] MEDS ORDERED: ISOVUE-370 76% 100ML VIAL (Q9967) As Ordered ONE (04:04)
--- NOTE | 2017-02-02 05:00 | REPUSA ---
CLINICAL HISTORY: Abdominal pain. TECHNIQUE: Multiple axial, sagittal and coronal CT images were obtained through the abdomen and pelvi s after administration of oral and intravenous contrast material. COMMENTS: The liver is mildly enlarged with decreased attenuation without mass or defect. There is no intra or extrahepatic biliary ductal dilatation. The spleen is normal. The gallbladder is within normal limits . The pancreas is of normal contour and attenuation characteristics. There is no evidence of adrenal mass. Both kidneys demonstrate prompt and equal nephrograms. The kidneys are normal in size, shape and conf iguration. There is no evidence of renal or ureteral mass. No renal or ureteral calculi are identifie d. There is no hydroureter or hydronephrosis. No evidence for appendicitis. There is no bowel wall thickening. No evidence for small or large darby l obstruction. There is no evidence of abdominal ascites or lymphadenopathy. There is no evidence of intrinsic or extrinsic bladder mass. There is no pelvic ascites or lymphadeno bebe. Images of the lung bases show no evidence of pleural or parenchymal mass. There are no pleural effusi ons. The bony structures are free of lytic or blastic lesions. IMPRESSION: Mild hepatomegaly with fatty liver infiltration. No evidence of acute abdominal or pelvic pathology. Thank you for your kind referral of this patient.
== END 2017-02-02 05:22 | disposition home or self-care (01) ==
LOC: M ED 01:03
DX: R10.9 Unspecified abdominal pain (principal); K52.9 Noninfective gastroenteritis and colitis, unspecified; I10 Essential (primary) hypertension; M79.7 Fibromyalgia; M54.9 Dorsalgia, unspecified; G89.29 Other chronic pain; Z79.899 Other long term (current) drug therapy; Z88.2 Allergy status to sulfonamides; Z91.013 Allergy to seafood; Z98.890 Other specified postprocedural states
CPT/HCPCS: 74177; 80048; 80076; 81001; 82150; 83690; 85025; 87086; 99284; Q9963; Q9967

== ENCOUNTER → 2017-03-07 | Outpatient (CLI) | payer OTHER ==
[~2017-03-07] MED LIST changes: +HYDR-2809 PO; +PROP1TAB29 PO
--- NOTE | 2017-03-19 00:27 | ECWPNPC ---
PATIENT NAME: PATRIZIA BARBOZA : 1965 GENDER: MALE VISIT DATE: 03/07/2017 DISCHARGE DATE: 03/07/17 1527 VISIT LOCKED DATE TIME: PHYSICIAN: DUNG ORTIZ RESOURCE: DUNG ORTIZ REASON FOR APPOINTMENT 1. FIBRO HISTORY OF PRESENT ILLNESS HISTORY OF PRESENT ILLNESS: PAIN THE PATIENT DESCRIBES THE PAIN... FALL RISK SCREENING: SCREENING :NO FALLS IN THE PAST YEAR TODAY'S VISIT: NOTES: RATES PAIN TODAY 510. IS NOTING PAIN FROM RIGHT MOLAR EXTRACTION YESTERDAY. . CURRENT MEDICATIONS TAKING ALBUTEROL SULFATE (2.5 MG/3ML) 0.083% NEBULIZATION SOLUTION 3 ML INHALATION DIRECTED TAKING BENADRYL 25 MG CAPSULE 1 CAPSULE ORALLY ONCEA A DAY TAKING FLONASE 50 MCG/ACT SUSPENSION 1 SPRAY IN EACH NOSTRIL NASALLY ONCE A DAY TAKING LIDOCAINE 4 % CREAM APPLY SMALL AMOUNT TO PAINFUL AREAS EXTERNALLY FOUR TIMES DAILY TO HIP AND LOW BACK PAINFUL AREAS TAKING DRISDOL 11549 UNIT CAPSULE 1 CAPSULE ORALLY ONCE A WEEK TAKING TIZANIDINE HCL 4 MG TABLET 2 CAPSULE ORALLY EVERY 8 HRS TAKING ESZOPICLONE 3 MG TABLET 1 TABLET IMMEDIATELY BEFORE BEDTIME ORALLY BEFORE BEDTIME MDD=1, NOTES: COST WENT WAY UP TAKING CALAN SR 180 MG TABLET EXTENDED RELEASE 1 TABLET ORALLY TWICE A DAY TAKING PROPRANOLOL HCL 20 MG TABLET 1 TABLET ORALLY TWICE A DAY TAKING TRAMADOL HCL 50 MG TABLET 1 -2 TABLET NEEDED ORALLY EVERY 6 HRS PRN PAIN MDD=6 TAKING NORCO 10-325 MG TABLET 1 TABLET NEEDED ORALLY TAKE 1 TAB Q 8-12 HOURS PRN PAIN MDD=2 NOT-TAKING CIPROFLOXACIN HCL 500 MG TABLET 1 TABLET ORALLY TWICE A DAY NOT-TAKING CHLORTHALIDONE 25 MG TABLET 1/2 TABLET ORALLY ONCE A DAY NOT-TAKING DOXYCYCLINE MONOHYDRATE 100 MG CAPSULE 1 CAPSULE ORALLY EVERY 12 HRS NOT-TAKING SIMVASTATIN 10 MG TABLET 1 TABLET IN THE EVENING ORALLY ONCE A DAY NOT-TAKING ULTRAM 50 MG TABLET 1 TABLET NEEDED FOR PAIN ORALLY EVERY 8HRSPRN MDD3 NOT-TAKING DOXYCYCLINE MONOHYDRATE 100 MG CAPSULE 1 CAPSULE ORALLY EVERY 12 HRS NOT-TAKING DOXYCYCLINE HYCLATE 100 MG CAPSULE 1 CAPSULE ORALLY EVERY 12 HRS NOT-TAKING FAMOTIDINE 40 MG TABLET 1 TABLET ORALLY ONCE A DAY NEEDED NOT-TAKING CLARITIN 10 MG TABLET 1 TABLET ORALLY ONCE A DAY MEDICATION LIST REVIEWED AND RECONCILED WITH THE PATIENT PAST MEDICAL HISTORY IBS URTHERAL STRICTURE HYPERTENSION SEASONAL ALLERGIES PROSTATITIS HYPERCHOLESTEROLEMIA SLEEP 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 FIBROMYALGIA ALLERGIES SULFAMETHOXAZOLE: HIVES: SIDE EFFECTS LISINOPRIL: UNKNOWN LOSARTAN POTASSIUM: NAUSEA/VOMITING: SIDE EFFECTS FENTANYL: NAUSEA/VOMITING: SIDE EFFECTS CYMBALTA EFFEXOR: NAUSEA/VOMITING AMITRIPTYLINE: WAKEFULNESS SAVELLA: MENTAL STAUS CHANGES: SIDE EFFECTS BUPROPION HCL: SLEEP PATTERN ALTERED, VERY LOW ENERGY: SIDE EFFECTS WELLBURTRAN: ALTERED SLEEP PATTERN,EATING ALL THE TIME SEA FOOD: N/V: SIDE EFFECTS ENVIRONMENTAL: REDNESS, BREATHING DIFFICULTY: ALLERGY SOCIAL HISTORY GENERAL: TOBACCO USE ARE YOU A:NONSMOKER ALCOHOL SCREENING DID YOU HAVE A DRINK CONTAINING ALCOHOL IN THE PAST YEAR?YES HOW OFTEN DID YOU HAVE SIX OR MORE DRINKS ON ONE OCCASION IN THE PAST YEAR?NEVER (0 POINTS) HOW MANY DRINKS DID YOU HAVE ON A TYPICAL DAY WHEN YOU WERE DRINKING IN THE PAST YEAR?1 OR 2 (0 POINTS) HOW OFTEN DID YOU HAVE A DRINK CONTAINING ALCOHOL IN THE PAST YEAR?MONTHLY OR LESS (1 POINT) POINTS1 INTERPRETATIONNEGATIVE RECREATIONAL DRUG USE DRUG USE?NO CAFFEINE CAFFEINE USE?YES HOW OFTEN AND HOW MUCH? 3-4 CUPS HIV / HEP-C SCREENING HIV TEST OFFERED TO PATIENT:YES DATE OFFERED:09/08/2016 TEST ACCEPTED:NO REASON:PATIENT DECLINED OCCUPATION: UNEMPLOYED. DIET: REGULAR. EXERCISE: NO REGULAR EXERCISE. MARITAL STATUS: SINGLE. OTHERS AT HOME: NONE. DENOMINATIONAL [id number] WORSHIP LANGUAGE LANGUAGES SPOKEN:FILIPINO EDUCATION LEVEL OF EDUCATION:NOT FINISHED COLLEGE LEARNING BARRIERS / SPECIAL NEEDS CHANGE FROM LAST VISIT?NO BARRIERS TO LEARNING?YES COMMENTS NEEDS REPETITION HEARING IMPAIRED?NO VISION IMPAIRED?NO COGNITIVELY IMPAIRED?NO READINESS TO LEARN?YES LEARNING PREFERENCES?NO LEARNING CAPABILITIES PRESENT?YES EMOTIONAL BARRIERS?NO SPECIAL DEVICES?NO CAUSE ANALYST NEEDED?YES PAIN CLINIC PFS, CLERGY, PUBLIC HEALTH REFERRALS PFS REFERRAL NEEDED? NO , CLERGY REFERRAL NEEDED? NO , PUBLIC HEALTH REFERRAL NEEDED? NO , WAS THE PROVIDER NOTIFIED OF ANY PERTINENT INFO? NO . PATIENT: ____. NO DOMESTIC VIOLENCE . REVIEW OF SYSTEMS REVIEWED BY: PROVIDER: . CONSTITUTIONAL: ANY CHANGE IN YOUR MEDICAL CONDITION? NO . CHILLS NO . FEVER NO . INFECTION: DO YOU HAVE NEW INFECTIONS? NO . DO YOU HAVE HISTORY OF MRSA? NO . MUSCULOSKELETAL: ANY NEW PATTERNS OF PAIN OR NUMBNESS? YES, NEEDS TO DISCUSS WITH BENNETT . GASTROENTEROLOGY: ANY NEW CHANGE IN BOWEL CONTROL? NO . GENITOURINARY: ANY NEW CHANGE IN BLADDER CONTROL? NO . IS THERE A CHANCE YOU COULD BE ? NO . HEMATOLOGY/LYMPH: DO YOU TAKE ANY BLOOD THINNERS? (FOR EXAMPLE- COUMADIN, PLAVIX, AGGRENOX, PLATEL, PRADAXA, OR XARELTO) NO . WHEN WAS YOUR LAST DOSE? DATE: TIME: . NEUROLOGY: HAVE YOU FALLEN IN THE PAST 6 MONTHS? NO . ANY NEW EXTREMITY NUMBNESS OR WEAKNESS? NO . CARDIOLOGY: DO YOU HAVE A PACEMAKER OR DEFIBRILLATOR? NO . RESPIRATORY: HAVE YOU BEEN SICK IN THE PAST WEEK? NO . FEVER NO . FLU LIKE SYMPTOMS? NO . COUGH NO . INTEGUMENTARY: DO YOU HAVE ANY RASHES OR OPEN SORES? NO . ALLERGIC/IMMUNO: ARE YOU ALLERGIC TO SHELLFISH OR IV DYE? YES . ANY NEW ALLERGIES? NO . PSYCHIATRIC: DO YOU HAVE THOUGHTS OF HURTING YOURSELF OR SOMEONE ELSE? NO . ARE YOU ABUSED, NEGLECTED, OR IN AN UNSAFE ENVIRONMENT? NO . ENDOCRINOLOGY: ARE YOU DIABETIC? NO . OTHER: DO YOU NEED ANY PRESCRIPTIONS? YES . IF YES, PLEASE LIST: SLEEPING PILL . ANY NEW PROBLEMS WITH YOUR MEDICATIONS? YES, INSURANCE PROBLEMS WITH LUENESTA EXPENSE . WHEN DID YOU LAST EAT? ____ . WHEN DID YOU LAST DRINK? ____ . WHAT DID YOU LAST DRINK? ____ . NAME OF PERSON DRIVING YOU HOME? ____ . DO YOU HAVE ANY OTHER QUESTIONS OR CONCERNS NO . VITAL SIGNS WT 223 LBS, HT 70.5 IN, BMI 31.54 INDEX, BP 151/83 MM HG, HR 78 /MIN, RR 18 /MIN, TEMP 98.2 F, OXYGEN SAT % 98%, NA INITIALS AW 1442, REVIEWED BY: NL. EXAMINATION GENERAL EXAMINATION: GENERAL APPEARANCE:NO ACUTE DISTRESS, WELL NOURISHED AND HYDRATED . PSYCHAPPROPRIATE MOOD AND AFFECT . NECK:NO LYMPHADENOPATHY, SUPPLE, NO THYROMEGALY, NO JVD OR BRUITS . LUNGS:CLEAR TO AUSCULTATION BILATERALLY . HEART:REGULAR RATE AND RHYTHM . MUSCULOSKELETAL:TENDER POINTS ABOVE AND BELOW THE WAIST BOTH SIDES OF THE BODY, CONSISTANT WITH FIBROMYALGIA. SKIN:NORMAL - NO LESIONS, INTERMITTANTLY FLUSHED . ASSESSMENTS FIBROMYALGIA - M79.7 (PRIMARY) CHRONIC PRESCRIPTION OPIATE USE - Z79.891 TREATMENT FIBROMYALGIA REFILL NORCO TABLET, 10-325 MG, 1 TABLET NEEDED, ORALLY, TAKE 1 TAB Q 8-12 HOURS PRN PAIN MDD=2, 30 DAY(S), 60, REFILLS 0 NOTES: WALK TOLERATED.CALL OTHER PHARMACIES TO CHECK ON COST FOR LUNESTA. CLINICAL NOTES: ISTOP REGISTRY REVIEWED AND DEMNOSTRATES COMPLLIANCE. (REF # [id number]) BRINGS IN MEDICATIONS WHICH IS APPROPRIATE FOR WHAT WAS DISPENSED. RECENT URINE TOXICOLOGY REVIEWED. NO UNAUTHORIZED MEDICATIONS. NO ILLICIT SUBSTANCES AND PRESCRIBED MEDICATIONS WERE PRESENT. PROCEDURE CODES FA211 ESTABILISHED PATIENT [facility] CHARGE DISPOSITION & COMMUNICATION FOLLOW UP APRIL (REASON: GENERALIZED PAIN) ELECTRONICALLY SIGNED BY ALONSO MARSHALL ON 03/17/2017 AT 01:12 PM EST DISCLAIMER : THIS IS A VISIT SUMMARY EXTRACTED FROM THE [facility]. IT IS NOT A COPY OF THE [employer] PROGRESS NOTE. JOSE
== END ==
LOC: M PAIN 14:45
PROVIDERS: ATTEND Nurse Practitioner Family
DX: G89.29 Other chronic pain (principal); M79.7 Fibromyalgia; I10 Essential (primary) hypertension; J30.2 Other seasonal allergic rhinitis; G47.30 Sleep apnea, unspecified; Z88.2 Allergy status to sulfonamides; Z88.8 Allergy status to other drugs, medicaments and biological substances; Z88.5 Allergy status to narcotic agent; Z91.013 Allergy to seafood; Z79.891 Long term (current) use of opiate analgesic; Z79.899 Other long term (current) drug therapy

== ENCOUNTER → 2017-05-15 | Outpatient (CLI) | payer OTHER | END | disposition home or self-care (01) | LOC: M PAIN 14:15 | DX: G89.29 Other chronic pain (principal); M79.7 Fibromyalgia; I10 Essential (primary) hypertension; E78.00 Pure hypercholesterolemia, unspecified; K58.9 Irritable bowel syndrome, unspecified; M16.12 Unilateral primary osteoarthritis, left hip; G47.30 Sleep apnea, unspecified; M51.9 Unspecified thoracic, thoracolumbar and lumbosacral intervertebral disc disorder; Z79.899 Other long term (current) drug therapy; Z79.51 Long term (current) use of inhaled steroids; J30.89 Other allergic rhinitis; Z88.2 Allergy status to sulfonamides; Z88.8 Allergy status to other drugs, medicaments and biological substances; Z91.013 Allergy to seafood | CPT/HCPCS: G0463 ==

== ENCOUNTER → 2017-05-28 | Outpatient (REF) | payer OTHER | LOC: M SFHCSACK 14:25 | DX: J02.9 Acute pharyngitis, unspecified (principal) ==

== ENCOUNTER → 2017-06-20 | Outpatient (REF) | payer OTHER ==
[2017-06-20 14:46] LABS: BASO # 0.1 10^3/uL (0.0-0.2); EOS # 0.2 10^3/uL (0.0-0.50); EOS % 2.7 % (0.0-3.0); HEMATOCRIT 42.6 % (42.0-52.0); HEMOGLOBIN 14.4 g/dl (14.0-18.0); IMMATURE GRANULOCYTE % 0.1 % (0-3.0); LYMPH # 3.3 10^3/uL (1.5-4.5); LYMPH % 47.9 % (24.0-44.0); MEAN CORPUSCULAR HEMOGLOBIN 30.1 pg (27.0-33.0); MEAN CORPUSCULAR HGB CONC 33.8 g/dl (32.0-36.5); MEAN CORPUSCULAR VOLUME 89.1 fl (80.0-96.0); MONO # 0.7 10^3/uL (0.0-0.8); NEUTROPHILS # 2.6 10^3/uL (1.8-7.7); NEUTROPHILS % 38.3 % (36.0-66.0); PLATELET COUNT, AUTOMATED 243 10^3/uL (150-450); RED BLOOD COUNT 4.78 10^6/uL (4.30-6.10); RED CELL DISTRIBUTION WIDTH 11.6 % (11.5-14.5); WHITE BLOOD COUNT 6.8 10^3/uL (4.0-10.0)
[2017-06-20 15:10] LABS: TOTAL 25(OH) VITAMIN D 16.5 NG/ML (30.0-100.0)
[2017-06-20 15:22] LABS: ALBUMIN 3.7 GM/DL (3.2-5.2); ALBUMIN/GLOBULIN RATIO 1.16 (1.00-1.93); ALKALINE PHOSPHATASE 68 U/L (45-117); ALT/SGPT 31 U/L (12-78); ANION GAP 8 MEQ/L (8-16); AST/SGOT 24 U/L (7-37); BILIRUBIN,TOTAL 0.3 MG/DL (0.2-1.0); BLOOD UREA NITROGEN 10 MG/DL (7-18); CALCIUM LEVEL 8.7 MG/DL (8.5-10.1); CARBON DIOXIDE LEVEL 31 MEQ/L (21-32); CHLORIDE LEVEL 103 MEQ/L (98-107); CHOLESTEROL LEVEL 179 MG/DL (<200); CHOLESTEROL RISK RATIO 5.593 (<5); CREATININE FOR GFR 1.07 MG/DL (0.70-1.30); FREE T4 0.97 NG/DL (0.76-1.46); GLOMERULAR FILTRATION RATE > 60.0 (>56); GLUCOSE, FASTING 78 MG/DL (70-100); HDL CHOLESTEROL 32 MG/DL (>40); NON-HDL-C 147 MG/DL; POTASSIUM SERUM 4.1 MEQ/L (3.5-5.1); SODIUM LEVEL 142 MEQ/L (136-145); TOTAL PROTEIN 6.9 GM/DL (6.4-8.2); TRIGLYCERIDES LEVEL 418 MG/DL (<150)
== END ==
LOC: M SFHCSACK 10:57
DX: I10 Essential (primary) hypertension (principal); E78.2 Mixed hyperlipidemia; R53.83 Other fatigue; E55.9 Vitamin D deficiency, unspecified

== ENCOUNTER → 2017-07-02 | Outpatient (CLI) | payer OTHER | LOC: M PAIN 14:00 | DX: M79.7 Fibromyalgia (principal); I10 Essential (primary) hypertension; E78.00 Pure hypercholesterolemia, unspecified; G47.30 Sleep apnea, unspecified; J30.2 Other seasonal allergic rhinitis; Z79.899 Other long term (current) drug therapy; Z88.5 Allergy status to narcotic agent; Z88.8 Allergy status to other drugs, medicaments and biological substances; Z91.013 Allergy to seafood | CPT/HCPCS: G0463 ==

== ENCOUNTER → 2017-10-08 | Outpatient (REF) | payer OTHER ==
[2017-10-08 16:17] LABS: BASO # 0.1 10^3/uL (0.0-0.2); BASO % 0.8 % (0.0-1.0); EOS # 0.2 10^3/uL (0.0-0.50); EOS % 2.6 % (0.0-3.0); HEMATOCRIT 42.2 % (42.0-52.0); IMMATURE GRANULOCYTE % 0.3 % (0-3.0); LYMPH # 2.4 10^3/uL (1.5-4.5); LYMPH % 38.4 % (24.0-44.0); MEAN CORPUSCULAR HEMOGLOBIN 30.9 pg (27.0-33.0); MEAN CORPUSCULAR HGB CONC 33.2 g/dl (32.0-36.5); MEAN CORPUSCULAR VOLUME 93.2 fl (80.0-96.0); MONO # 0.7 10^3/uL (0.0-0.8); MONO % 11.5 % (0.0-5.0); NEUTROPHILS # 2.9 10^3/uL (1.8-7.7); NEUTROPHILS % 46.4 % (36.0-66.0); PLATELET COUNT, AUTOMATED 247 10^3/uL (150-450); RED BLOOD COUNT 4.53 10^6/uL (4.30-6.10); RED CELL DISTRIBUTION WIDTH 12.3 % (11.5-14.5); WHITE BLOOD COUNT 6.2 10^3/uL (4.0-10.0)
[2017-10-08 16:37] LABS: FOLATE > 24.0 NG/ML; TOTAL 25(OH) VITAMIN D 42.9 NG/ML (30.0-100.0); VITAMIN B12 LEVEL 390 PG/ML
[2017-10-08 16:41] LABS: ALBUMIN/GLOBULIN RATIO 1.29 (1.00-1.93); ALKALINE PHOSPHATASE 66 U/L (45-117); ALT/SGPT 30 U/L (12-78); ANION GAP 10 MEQ/L (8-16); AST/SGOT 19 U/L (7-37); BILIRUBIN,TOTAL 0.4 MG/DL (0.2-1.0); BLOOD UREA NITROGEN 14 MG/DL (7-18); C REACTIVE PROTEIN QUANTITATIV 0.38 MG/DL (0.00-0.30); CALCIUM LEVEL 8.5 MG/DL (8.5-10.1); CARBON DIOXIDE LEVEL 29 MEQ/L (21-32); CHLORIDE LEVEL 106 MEQ/L (98-107); CREATININE FOR GFR 1.12 MG/DL (0.70-1.30); FREE T4 0.98 NG/DL (0.76-1.46); GLOMERULAR FILTRATION RATE > 60.0 (>56); GLUCOSE, FASTING 69 MG/DL (70-100); POTASSIUM SERUM 4.1 MEQ/L (3.5-5.1); RHEUMATOID FACTOR QUANT < 10.0 IU/ML (<15.0); SODIUM LEVEL 145 MEQ/L (136-145); TOTAL PROTEIN 7.1 GM/DL (6.4-8.2)
[2017-10-08 21:58] LABS: ERYTHROCYTE SEDIMENTATION RATE 8 mm/hr (0-20)
[2017-10-10 10:42] LABS: HEPATITIS C VIRUS ABY INDEX 0.1 INDEX (<0.8)
[2017-10-11 00:06] LABS: ANA (HEP2) Negative (.); Lyme Disease IgG/IgM Antibodie <0.91 ISR (0.00-0.90); Lyme Disease IgM Ab Quantitati <0.80 index (0.00-0.79)
[2017-10-11 00:06] LABS: CYCLIC CITRULLINATED PEPTIDE 5 units (0-19)
== END ==
LOC: M SFHCPLAZ 12:18
DX: E55.9 Vitamin D deficiency, unspecified (principal); Z86.19 Personal history of other infectious and parasitic diseases; Z13.29 Encounter for screening for other suspected endocrine disorder; M79.7 Fibromyalgia

== ENCOUNTER 2017-10-26 09:31 | Inpatient (IN) | payer MEDICAID, OTHER ==
[2017-10-26] MEDS: NS 1,000 ML IV ×3 (09:42→10:37)
[2017-10-26 10:08] LABS: BASO # 0.1 10^3/uL (0.0-0.2); BASO % 0.7 % (0.0-1.0); EOS # 0.1 10^3/uL (0.0-0.50); EOS % 1.1 % (0.0-3.0); HEMATOCRIT 39.5 % (42.0-52.0); HEMOGLOBIN 13.6 g/dl (13.5-17.5); IMMATURE GRANULOCYTE % 0.2 % (0-3.0); LYMPH # 2.4 10^3/uL (1.5-4.5); LYMPH % 26.2 % (24.0-44.0); MEAN CORPUSCULAR HEMOGLOBIN 31.6 pg (27.0-33.0); MEAN CORPUSCULAR HGB CONC 34.4 g/dl (32.0-36.5); MEAN CORPUSCULAR VOLUME 91.9 fl (80.0-96.0); MONO # 0.7 10^3/uL (0.0-0.8); MONO % 7.7 % (0.0-5.0); NEUTROPHILS # 5.9 10^3/uL (1.8-7.7); NEUTROPHILS % 64.1 % (36.0-66.0); PLATELET COUNT, AUTOMATED 245 10^3/uL (150-450); RED CELL DISTRIBUTION WIDTH 11.7 % (11.5-14.5); WHITE BLOOD COUNT 9.1 10^3/uL (4.0-10.0)
[2017-10-26 10:36] LABS: LACTIC ACID SEPSIS PROTOCOL 1.9 MMOL/L (0.4-2.0)
[2017-10-26 10:39] LABS: ACETAMINOPHEN LEVEL 11.2 UG/ML (10.0-30.0); ALBUMIN 3.3 GM/DL (3.2-5.2); ALKALINE PHOSPHATASE 65 U/L (45-117); ALT/SGPT 31 U/L (12-78); ANION GAP 9 MEQ/L (8-16); AST/SGOT 14 U/L (7-37); BILIRUBIN,DIRECT 0.1 MG/DL (0.0-0.2); BILIRUBIN,TOTAL 0.4 MG/DL (0.2-1.0); BLOOD UREA NITROGEN 17 MG/DL (7-18); CALCIUM LEVEL 8.1 MG/DL (8.5-10.1); CARBON DIOXIDE LEVEL 30 MEQ/L (21-32); CHLORIDE LEVEL 106 MEQ/L (98-107); CPK CREATINE PHOSPHOKINASE 131 U/L (39-308); CREATININE FOR GFR 1.62 MG/DL (0.70-1.30); ETHYL ALCOHOL (ETHANOL) 0.003 % (0.000-0.010); GLOMERULAR FILTRATION RATE 47.7 (>56); GLUCOSE, FASTING 90 MG/DL (70-100); POTASSIUM SERUM 3.8 MEQ/L (3.5-5.1); SALICYLATE LEVEL < 1.7 MG/DL (5.0-30.0); SODIUM LEVEL 145 MEQ/L (136-145); TOTAL PROTEIN 6.3 GM/DL (6.4-8.2); TROPONIN I < 0.02 NG/ML (< 0.10)
[2017-10-26 10:44] LABS: MB/CK RELATIVE INDEX 1.52 (< OR =4)
[2017-10-26 14:14] LABS: AMPHETAMINES LEVEL URINE NEGATIVE (NEGATIVE); BARBITURATES URINE NEGATIVE (NEGATIVE); BENZODIAZEPINES URINE NEGATIVE (NEGATIVE); CANNABINOIDS URINE NEGATIVE (NEGATIVE); COCAINE METABOLITE URINE NEGATIVE (NEGATIVE); METHADONE URINE NEGATIVE (NEGATIVE); OPIATES URINE POSITIVE (NEGATIVE); PHENCYCLIDINE URINE NEGATIVE (NEGATIVE)
[2017-10-26 15:17] LABS: ACETAMINOPHEN LEVEL < 2.0 UG/ML (10.0-30.0); ANION GAP 6 MEQ/L (8-16); BLOOD UREA NITROGEN 16 MG/DL (7-18); CALCIUM LEVEL 8.2 MG/DL (8.5-10.1); CARBON DIOXIDE LEVEL 30 MEQ/L (21-32); CHLORIDE LEVEL 110 MEQ/L (98-107); CREATININE FOR GFR 1.18 MG/DL (0.70-1.30); GLOMERULAR FILTRATION RATE > 60.0 (>56); GLUCOSE, FASTING 104 MG/DL (70-100); POTASSIUM SERUM 4.1 MEQ/L (3.5-5.1); SODIUM LEVEL 146 MEQ/L (136-145)
[2017-10-26] MEDS ORDERED: ACETAMINOPHEN TAB 650MG DOSE (2X325MG) PO (19:30)
[2017-10-26] MEDS ORDERED: traZODone 50 MG TAB PO (19:30)
[2017-10-26] MEDS ORDERED: MOM 30ML SUSPENSION UDC PO (19:30)
[2017-10-26] MEDS ORDERED: MAALOX 30 ML SUSP *UDC PO (19:30)
[2017-10-26] MEDS ORDERED: ALBUTEROL 90 MCG/ACT 8GM HFA INHALER INH (20:45)
[2017-10-26] MEDS ORDERED: LORATADINE 10 MG TAB PO (20:45)
[2017-10-26] MEDS: CARVedilol 12.5 MG TAB PO (21:00)
[2017-10-26] MEDS: GABAPENTIN 100 MG CAP PO ×2 (21:00→21:15)
[2017-10-26] MEDS: tiZANidine 4 MG TAB PO (21:15)
[2017-10-26] MEDS: cloNIDine 0.2 MG TAB PO (21:17)
[2017-10-26] MEDS: zolPIDEM TARTRATE 10MG TAB PO (23:52)
[2017-10-27] MEDS: CARVedilol 12.5 MG TAB PO ×2 (08:31→21:55)
[2017-10-27] MEDS: ATORVASTATIN 20 MG TAB PO (08:31)
[2017-10-27] MEDS: GABAPENTIN 100 MG CAP PO ×2 (08:31→21:00)
[2017-10-27] MEDS ORDERED: FLUTICASONE PROP 0.05% NASAL SPRAY 16 GM (FLONASE) (09:00)
[2017-10-27] MEDS: tiZANidine 4 MG TAB PO ×3 (09:19→21:55)
[2017-10-27] MEDS: cloNIDine 0.2 MG TAB PO (16:49)
[2017-10-27] MEDS: zolPIDEM TARTRATE 10MG TAB PO (22:58)
[2017-10-28] MEDS: ATORVASTATIN 20 MG TAB PO (08:39)
[2017-10-28] MEDS: tiZANidine 4 MG TAB PO ×3 (08:39→21:47)
[2017-10-28] MEDS: traMADol 50 MG TAB PO (08:40)
[2017-10-28] MEDS: VITAMIN D 50,000 UNITS CAPSULE (ERGOCALCIFEROL 1.25MG) PO (08:40)
[2017-10-28] MEDS: CARVedilol 12.5 MG TAB PO (08:40)
[2017-10-28] MEDS: GABAPENTIN 100 MG CAP PO ×3 (08:43→21:48)
[2017-10-28] MEDS: cloNIDine 0.2 MG TAB PO (09:13)
[2017-10-28] MEDS: LABETALOL 100 MG TAB PO (09:15)
[2017-10-28] MEDS ORDERED: diphenhydrAMINE 50 MG CAP PO (12:30)
[2017-10-28] MEDS: PROPRANOLOL 10 MG TAB PO (21:48)
[2017-10-28] MEDS: VERAPAMIL 120 MG SR TAB PO (21:48)
[2017-10-28] MEDS: zolPIDEM TARTRATE 10MG TAB PO (23:06)
[2017-10-29] MEDS: GABAPENTIN 100 MG CAP PO (08:46)
[2017-10-29] MEDS: tiZANidine 4 MG TAB PO (08:51)
[2017-10-29] MEDS: VERAPAMIL 120 MG SR TAB PO (08:52)
[2017-10-29] MEDS: PROPRANOLOL 10 MG TAB PO (08:52)
[2017-10-29] MEDS: ATORVASTATIN 20 MG TAB PO (08:53)
[2017-10-29] MEDS: traMADol 50 MG TAB PO (08:53)
[2017-10-29] MEDS ORDERED: PROPRANOLOL 20 MG TAB PO (21:00)
== END 2017-10-29 14:45 | disposition home or self-care (01) | DRG 885 ==
LOC: M ED 09:31 → M ED INP 19:17 → M PSY 20:48
DX: F39 Unspecified mood [affective] disorder (principal); A69.20 Lyme disease, unspecified; I10 Essential (primary) hypertension; M79.7 Fibromyalgia; G89.29 Other chronic pain; G47.33 Obstructive sleep apnea (adult) (pediatric); E78.2 Mixed hyperlipidemia; E55.9 Vitamin D deficiency, unspecified; K58.9 Irritable bowel syndrome, unspecified; G25.0 Essential tremor; J30.2 Other seasonal allergic rhinitis; M16.12 Unilateral primary osteoarthritis, left hip; Z79.899 Other long term (current) drug therapy; Z88.8 Allergy status to other drugs, medicaments and biological substances; Z91.013 Allergy to seafood; Z88.2 Allergy status to sulfonamides

== ENCOUNTER → 2017-11-05 | Outpatient (CLI) | payer OTHER | LOC: M PAIN 13:45 | DX: M79.7 Fibromyalgia (principal); I10 Essential (primary) hypertension; J30.2 Other seasonal allergic rhinitis; E78.00 Pure hypercholesterolemia, unspecified; G47.30 Sleep apnea, unspecified; M16.12 Unilateral primary osteoarthritis, left hip; Z79.899 Other long term (current) drug therapy; Z88.2 Allergy status to sulfonamides; Z88.5 Allergy status to narcotic agent; Z88.8 Allergy status to other drugs, medicaments and biological substances; Z91.013 Allergy to seafood; Z86.19 Personal history of other infectious and parasitic diseases | CPT/HCPCS: G0463 ==

== ENCOUNTER → 2017-12-12 | Outpatient (REF) | payer OTHER ==
[2017-12-12 15:33] LABS: BASO % 0.6 % (0.0-1.0); EOS # 0.1 10^3/uL (0.0-0.50); EOS % 1.8 % (0.0-3.0); HEMATOCRIT 40.3 % (42.0-52.0); HEMOGLOBIN 13.9 g/dl (13.5-17.5); IMMATURE GRANULOCYTE % 0.3 % (0-3.0); LYMPH # 2.3 10^3/uL (1.5-4.5); LYMPH % 32.1 % (24.0-44.0); MEAN CORPUSCULAR HEMOGLOBIN 31.2 pg (27.0-33.0); MEAN CORPUSCULAR HGB CONC 34.5 g/dl (32.0-36.5); MEAN CORPUSCULAR VOLUME 90.4 fl (80.0-96.0); MONO # 0.6 10^3/uL (0.0-0.8); MONO % 8.4 % (0.0-5.0); NEUTROPHILS # 4.1 10^3/uL (1.8-7.7); NEUTROPHILS % 56.8 % (36.0-66.0); PLATELET COUNT, AUTOMATED 246 10^3/uL (150-450); RED BLOOD COUNT 4.46 10^6/uL (4.30-6.10); RED CELL DISTRIBUTION WIDTH 11.9 % (11.5-14.5); WHITE BLOOD COUNT 7.2 10^3/uL (4.0-10.0)
[2017-12-12 17:15] LABS: ALBUMIN 3.7 GM/DL (3.2-5.2); ALBUMIN/GLOBULIN RATIO 1.09 (1.00-1.93); ALKALINE PHOSPHATASE 79 U/L (45-117); ALT/SGPT 42 U/L (12-78); ANION GAP 6 MEQ/L (8-16); AST/SGOT 24 U/L (7-37); BILIRUBIN,TOTAL 0.4 MG/DL (0.2-1.0); BLOOD UREA NITROGEN 11 MG/DL (7-18); CALCIUM LEVEL 8.5 MG/DL (8.5-10.1); CARBON DIOXIDE LEVEL 29 MEQ/L (21-32); CHLORIDE LEVEL 108 MEQ/L (98-107); CHOLESTEROL LEVEL 115 MG/DL (<200); CHOLESTEROL RISK RATIO 3.833 (<5); CREATININE FOR GFR 1.06 MG/DL (0.70-1.30); GLOMERULAR FILTRATION RATE > 60.0 (>56); GLUCOSE, FASTING 85 MG/DL (70-100); HDL CHOLESTEROL 30 MG/DL (>40); LDL CHOLESTEROL 46.4 MG/DL (<100); NON-HDL-C 85 MG/DL; POTASSIUM SERUM 4.3 MEQ/L (3.5-5.1); SODIUM LEVEL 143 MEQ/L (136-145); TOTAL PROTEIN 7.1 GM/DL (6.4-8.2); TRIGLYCERIDES LEVEL 193 MG/DL (<150)
[2017-12-12 17:38] LABS: TOTAL 25(OH) VITAMIN D 60.6 NG/ML (30.0-100.0)
[2017-12-12 21:20] LABS: FREE T4 1.07 NG/DL (0.76-1.46); THYROID STIMULATING HORMONE 0.731 uIU/ML (0.358-3.740)
== END ==
LOC: M SFHCSACK 11:05
DX: I10 Essential (primary) hypertension (principal); E78.2 Mixed hyperlipidemia; Z13.29 Encounter for screening for other suspected endocrine disorder; E55.9 Vitamin D deficiency, unspecified
CPT/HCPCS: 84443

== ENCOUNTER → 2018-02-05 | Outpatient (CLI) | payer OTHER | LOC: M PAIN 13:00 | DX: M79.7 Fibromyalgia (principal); G89.29 Other chronic pain; I10 Essential (primary) hypertension; E78.00 Pure hypercholesterolemia, unspecified; G47.30 Sleep apnea, unspecified; M16.12 Unilateral primary osteoarthritis, left hip; J30.2 Other seasonal allergic rhinitis; Z79.899 Other long term (current) drug therapy; Z88.5 Allergy status to narcotic agent; Z88.8 Allergy status to other drugs, medicaments and biological substances; Z91.013 Allergy to seafood; Z86.19 Personal history of other infectious and parasitic diseases | CPT/HCPCS: G0463 ==

== ENCOUNTER → 2019-02-24 | Outpatient (REF) | payer OTHER ==
[~2019-02-24] MED LIST changes: +ATOR40TA75 PO; +BENA25CA4 PO; +DRIS50003 PO; -DULO30CA PO; +DULO30CA9 PO; +FENT12DI12 TOP; -FENT12PA TOP; +HYDR-2541 PO; -HYDR25TAB PO; -PROP1TAB29 PO; +PROP20TA72 PO; +TEST25GE2 INJ; -TEST5GEL2 INJ; +TIZA4CAP PO; -TIZA4CAP3 PO; +TRIA0.1C60 TOP; -TRIA1CR TOP; +VENTAER INH
[2019-02-24 14:27] LABS: BASO # 0.1 10^3/uL (0.0-0.2); BASO % 0.9 % (0.0-1.0); EOS # 0.2 10^3/uL (0.0-0.5); EOS % 2.2 % (0.0-3.0); HEMATOCRIT 44.1 % (42.0-52.0); HEMOGLOBIN 14.4 g/dl (13.5-17.5); LYMPH # 2.5 10^3/uL (1.5-5.0); LYMPH % 32.1 % (24.0-44.0); MEAN CORPUSCULAR HEMOGLOBIN 30.3 pg (27.0-33.0); MEAN CORPUSCULAR HGB CONC 32.7 g/dl (32.0-36.5); MEAN CORPUSCULAR VOLUME 92.6 fl (80.0-96.0); MONO # 0.6 10^3/uL (0.0-0.8); MONO % 7.8 % (0.0-5.0); NEUTROPHILS # 4.5 10^3/uL (1.5-8.5); NEUTROPHILS % 56.9 % (36.0-66.0); PLATELET COUNT, AUTOMATED 233 10^3/uL (150-450); RED BLOOD COUNT 4.76 10^6/uL (4.30-6.10); WHITE BLOOD COUNT 7.8 10^3/uL (4.0-10.0)
[2019-02-24 15:03] LABS: ALBUMIN 3.3 GM/DL (3.2-5.2); ALT/SGPT 32 U/L (12-78); BILIRUBIN,TOTAL 0.3 MG/DL (0.2-1.0); BLOOD UREA NITROGEN 12 MG/DL (7-18); CARBON DIOXIDE LEVEL 29 MEQ/L (21-32); CHLORIDE LEVEL 108 MEQ/L (98-107); CHOLESTEROL LEVEL 145 MG/DL (<200); CHOLESTEROL RISK RATIO 4.531 (<5); CREATININE FOR GFR 1.14 MG/DL (0.70-1.30); FREE T4 1.03 NG/DL (0.76-1.46); GLOMERULAR FILTRATION RATE > 60.0 (>56); GLUCOSE, FASTING 93 MG/DL (70-100); HDL CHOLESTEROL 32 MG/DL (>40); LDL CHOLESTEROL 82 MG/DL (<100); NON-HDL-C 113 MG/DL; POTASSIUM SERUM 4.2 MEQ/L (3.5-5.1); SODIUM LEVEL 143 MEQ/L (136-145); TOTAL PROTEIN 6.4 GM/DL (6.4-8.2); TRIGLYCERIDES LEVEL 155 MG/DL (<150)
[2019-02-24 16:01] LABS: TOTAL 25(OH) VITAMIN D 29.9 NG/ML (30.0-100.0)
== END ==
LOC: M SFHCSACK 09:40
PROVIDERS: ATTEND Physician Assistant
DX: I10 Essential (primary) hypertension (principal); E78.2 Mixed hyperlipidemia; G47.09 Other insomnia; Z12.5 Encounter for screening for malignant neoplasm of prostate; E55.9 Vitamin D deficiency, unspecified; Z68.36 Body mass index [BMI] 36.0-36.9, adult

== ENCOUNTER → 2019-07-30 | Outpatient (CLI) | payer OTHER ==
[~2019-07-30] MED LIST changes: -VERA120T2 PO; +VERA120T9 PO
== END ==
LOC: M LABSMTC 13:57
PROVIDERS: ATTEND Family Medicine
DX: Z11.59 Encounter for screening for other viral diseases (principal); Z20.828 Contact with and (suspected) exposure to other viral communicable diseases

== ENCOUNTER → 2020-10-25 | Outpatient (CLI) | payer OTHER ==
[~2020-10-25] MED LIST changes: -DOXY100C37 PO; +DOXY1CAP62 PO; -HYDR-2809 PO; +HYDR-4431 PO
[2020-10-25 15:56] LABS: BASO # 0.1 10^3/uL (0.0-0.2); BASO % 0.9 % (0.0-1.0); EOS # 0.2 10^3/uL (0.0-0.5); EOS % 2.2 % (0.0-3.0); HEMATOCRIT 47.6 % (42.0-52.0); HEMOGLOBIN 15.3 g/dl (13.5-17.5); LYMPH # 1.3 10^3/uL (1.5-5.0); LYMPH % 18.4 % (24.0-44.0); MEAN CORPUSCULAR HEMOGLOBIN 30.4 pg (27.0-33.0); MEAN CORPUSCULAR HGB CONC 32.1 g/dl (32.0-36.5); MEAN CORPUSCULAR VOLUME 94.6 fl (80.0-96.0); MONO # 0.8 10^3/uL (0.0-0.8); MONO % 11.6 % (2.0-8.0); NEUTROPHILS # 4.5 10^3/uL (1.5-8.5); NEUTROPHILS % 66.5 % (36.0-66.0); PLATELET COUNT, AUTOMATED 226 10^3/uL (150-450); RED BLOOD COUNT 5.03 10^6/uL (4.30-6.10); WHITE BLOOD COUNT 6.8 10^3/uL (4.0-10.0)
[2020-10-25 16:26] LABS: ALBUMIN 3.3 GM/DL (3.2-5.2); ALT/SGPT 36 U/L (12-78); BILIRUBIN,TOTAL 0.3 MG/DL (0.2-1.0); BLOOD UREA NITROGEN 10 MG/DL (7-18); CALCIUM LEVEL 8.5 MG/DL (8.5-10.1); CARBON DIOXIDE LEVEL 29 MEQ/L (21-32); CHLORIDE LEVEL 108 MEQ/L (98-107); CHOLESTEROL LEVEL 190 MG/DL (<200); CHOLESTEROL RISK RATIO 6.551 (<5); CREATININE FOR GFR 1.14 MG/DL (0.70-1.30); GLOMERULAR FILTRATION RATE > 60.0 (>56); GLUCOSE, FASTING 83 MG/DL (70-100); HDL CHOLESTEROL 29 MG/DL (>40); LDL CHOLESTEROL 83 MG/DL (<100); NON-HDL-C 161 MG/DL; POTASSIUM SERUM 4.2 MEQ/L (3.5-5.1); SODIUM LEVEL 143 MEQ/L (136-145); TOTAL PROTEIN 6.8 GM/DL (6.4-8.2); TRIGLYCERIDES LEVEL 388 MG/DL (<150)
[2020-10-25 16:34] LABS: TOTAL 25(OH) VITAMIN D 16.9 NG/ML (30.0-100.0)
== END ==
LOC: M WUC 11:06
PROVIDERS: ATTEND Nurse Practitioner Family
DX: E78.2 Mixed hyperlipidemia (principal); E55.9 Vitamin D deficiency, unspecified; I10 Essential (primary) hypertension

== ENCOUNTER → 2020-10-27 | Outpatient (REF) | payer OTHER | LOC: M SFHCLERA 10:57 | PROVIDERS: ATTEND Nurse Practitioner Family | DX: R53.81 Other malaise (principal); M79.10 Myalgia, unspecified site ==

== ENCOUNTER → 2020-10-27 | Outpatient (CLI) | payer OTHER ==
[2020-10-27 17:25] LABS: C REACTIVE PROTEIN QUANTITATIV 0.93 MG/DL (0.00-0.30); RHEUMATOID FACTOR QUANT < 10.0 IU/ML (<15.0); VITAMIN B12 LEVEL 341 PG/ML (247-911)
== END ==
LOC: M WUC 13:10
PROVIDERS: ATTEND Nurse Practitioner Family
DX: R53.81 Other malaise (principal); M79.10 Myalgia, unspecified site

== ENCOUNTER 2020-11-14 13:32 | Emergency (ER) | payer OTHER ==
[~2020-11-14] VITALS: Ht 180.3 cm; Wt 118.6 kg
[2020-11-14 13:32] VITALS: BP 186/118
[~2020-11-14 13:32] MED LIST changes: -CYMB60CA3 PO; +CYMB60CA4 PO; +DOXY-443 PO; -DOXY1CAP62 PO
== END 2020-11-14 15:57 | disposition left against medical advice (07) ==
LOC: M ED 13:32
DX: Z53.29 Procedure and treatment not carried out because of patient's decision for other reasons (principal)

== ENCOUNTER → 2022-06-20 | Outpatient (CLI) | payer OTHER ==
[2022-06-20 11:25] LABS: BASO # 0.1 10^3/uL (0.0-0.2); EOS # 0.2 10^3/uL (0.0-0.5); EOS % 2.2 % (0.0-3.0); HEMATOCRIT 46.6 % (42.0-52.0); HEMOGLOBIN 15.7 g/dl (13.5-17.5); LYMPH # 2.9 10^3/uL (1.5-5.0); LYMPH % 37.7 % (24.0-44.0); MEAN CORPUSCULAR HGB CONC 33.7 g/dl (32.0-36.5); MEAN CORPUSCULAR VOLUME 92.1 fl (80.0-96.0); MONO # 0.7 10^3/uL (0.0-0.8); MONO % 8.9 % (2.0-8.0); NEUTROPHILS # 3.8 10^3/uL (1.5-8.5); NEUTROPHILS % 50.1 % (36.0-66.0); PLATELET COUNT, AUTOMATED 219 10^3/uL (150-450); RED BLOOD COUNT 5.06 10^6/uL (4.30-6.10); WHITE BLOOD COUNT 7.7 10^3/uL (4.0-10.0)
[2022-06-20 11:48] LABS: ERYTHROCYTE SEDIMENTATION RATE 17 mm/hr (0-20)
[2022-06-20 11:50] LABS: C REACTIVE PROTEIN QUANTITATIV < 0.40 MG/DL (<1.0)
[2022-06-20 11:52] LABS: ALBUMIN 3.6 G/DL (3.2-5.2); ALKALINE PHOSPHATASE 62 U/L (46-116); ALT/SGPT 27 U/L (7.0-40); AST/SGOT 24 U/L (<34); BILIRUBIN,TOTAL 0.4 MG/DL (0.3-1.2); BLOOD UREA NITROGEN 12 MG/DL (9-23); CALCIUM LEVEL 8.7 MG/DL (8.5-10.1); CARBON DIOXIDE LEVEL 30 MMOL/L (20-31); CHLORIDE LEVEL 105 MMOL/L (98-107); CHOLESTEROL LEVEL 164 MG/DL (<200); CHOLESTEROL RISK RATIO 4.58 (<5); CREATININE FOR GFR 1.28 MG/DL (0.70-1.30); GLOMERULAR FILTRATION RATE > 60.0 (>56); GLUCOSE, FASTING 91 MG/DL (60-100); HDL CHOLESTEROL 35.8 MG/DL (>40); LDL CHOLESTEROL 106.4 MG/DL (<100); NON-HDL-C 128 MG/DL; SODIUM LEVEL 143 MMOL/L (136-145); TOTAL PROTEIN 6.5 G/DL (5.7-8.2); TRIGLYCERIDES LEVEL 109 MG/DL (<150)
[2022-06-20 12:50] LABS: RHEUMATOID FACTOR QUANT < 3.5 IU/ML (<14)
[2022-06-20 12:56] LABS: URIC ACID 8.4 MG/DL (3.7-9.2)
== END ==
LOC: M LAB 10:42
PROVIDERS: ATTEND Student in an Organized Health Care Education/Training Program
DX: I10 Essential (primary) hypertension (principal); R70.0 Elevated erythrocyte sedimentation rate

== ENCOUNTER 2023-04-19 08:05 | Inpatient (IN) | payer OTHER ==
[~2023-04-19] VITALS: Ht 180.3 cm; Wt 109.2 kg
[~2023-04-19 08:05] MED LIST changes: -LUNE3TAB36 PO; +LUNE3TAB50 PO
[2023-04-19] MEDS ORDERED: TRAZ-257 PO (08:25)
[2023-04-19] MEDS ORDERED: CARV12.5 PO (08:25)
[2023-04-19] MEDS ORDERED: NS 1,000 ML IV ONE ×2 (08:40→19:05)
[2023-04-19] MEDS: guaiFENesin ER TABLET 600 MG TAB PO SCH ×2 (09:00→20:08)
[2023-04-19] MEDS ORDERED: ENOXAPARIN 40MG/0.4ML SYRINGE (J1650 PER 10MG) SC SCH (09:00)
[2023-04-19 09:14] LABS: BASO # 0.1 10^3/uL (0.0-0.2); BASO % 0.3 % (0.0-1.0); HEMATOCRIT 45.2 % (42.0-52.0); HEMOGLOBIN 15.4 g/dl (13.5-17.5); LYMPH % 5.7 % (24.0-44.0); MEAN CORPUSCULAR HGB CONC 34.1 g/dl (32.0-36.5); MEAN CORPUSCULAR VOLUME 91.1 fl (80.0-96.0); MONO % 9.9 % (2.0-8.0); NEUTROPHILS # 14.8 10^3/uL (1.5-8.5); NEUTROPHILS % 83.5 % (36.0-66.0); PLATELET COUNT, AUTOMATED 193 10^3/uL (150-450); RED BLOOD COUNT 4.96 10^6/uL (4.30-6.10); WHITE BLOOD COUNT 17.8 10^3/uL (4.0-10.0)
[2023-04-19 09:17] LABS: ABG BASE EXCESS -1.8 (-2.0-2.0); ABG HCO3 21.9 MMOL/L (22.0-26.0); ABG O2 SATURATION 95.3 % (95.0-99.0); ABG PARTIAL PRESSURE CO2 34.6 mmHg (35.0-45.0); ABG PARTIAL PRESSURE O2 75.3 mmHg (75.0-100.0); ABG STANDARD HCO3 22.9 MMOL/L. (22.0-26.0); ABG pH (ARTERIAL) 7.419 UNITS (7.350-7.450)
[2023-04-19 09:24] LABS: ALBUMIN 3.5 G/DL (3.2-5.2); BILIRUBIN,DIRECT 0.2 MG/DL (<0.4); BILIRUBIN,TOTAL 0.6 MG/DL (0.3-1.2); CALCIUM LEVEL 8.5 MG/DL (8.5-10.1); CREATININE FOR GFR 2.46 MG/DL (0.70-1.30); GLOMERULAR FILTRATION RATE 28.9 (>56); POTASSIUM SERUM 3.7 MMOL/L (3.5-5.1); TOTAL PROTEIN 6.7 G/DL (5.7-8.2)
[2023-04-19 10:05] LABS: MONO # 1.8 10^3/uL (0.0-0.8)
[2023-04-19] MEDS ORDERED: cefTRIAXone SOD 1 GM in D5W MINI-BAG PLUS 50 ML IV ONE (10:20)
[2023-04-19] MEDS ORDERED: DOXYCYCLINE HYCLATE 100MG TABLET PO ONE (10:20)
[2023-04-19] MEDS ORDERED: MED REC IN PROGRESS XX SCH (10:25)
[2023-04-19] MEDS ORDERED: HOME MED LIST COMPLETE! XX SCH (11:15)
[2023-04-19] MEDS ORDERED: ACETAMINOPHEN TAB 650MG DOSE (2X325MG) PO PRN (11:45)
[2023-04-19] MEDS ORDERED: MAALOX 30 ML SUSP *UDC PO PRN (11:45)
[2023-04-19] MEDS: methylPREDNISolone 40MG 1ML VIAL IV SCH (13:05)
[2023-04-19 13:25] LABS: PROCALCITONIN 2.17 ng/ml
[2023-04-19 16:29] VITALS: BP 160/77; TEMP 96.6; O2SAT 96
[2023-04-19 16:40] VITALS: BP 98/63; TEMP 99.9; O2SAT 99
[2023-04-19 20:00] VITALS: BP 175/81; TEMP 97; O2SAT 96
[2023-04-19] MEDS: NS 1,000 ML IV SCH (20:00)
[2023-04-19] MEDS: DOXYCYCLINE HYCLATE 100MG TABLET PO SCH (20:08)
[2023-04-19] MEDS ORDERED: VANCOMYCIN HCL 1,000 MG, VIAL MATE ADAPTER 1 EACH in D5W 250 ML IV ONE ×2 (21:00→22:00)
[2023-04-19] MEDS: NIRMATRELVIR/RITONAVIR (RENAL) CO-PACK (EUA) PO SCH (21:00)
[2023-04-19] MEDS ORDERED: NIRMATRELVIR/RITONAVIR CO-PACK (EMERGENCY USE AUTH) PO SCH (21:00)
[2023-04-19] MEDS: CARVedilol 12.5 MG TAB PO SCH (22:30)
[2023-04-20] VITALS (7 sets, daily range): BP systolic 121–175; BP diastolic 69–89; TEMP 97.1–98.1; O2SAT 92–95
[2023-04-20] MEDS: methylPREDNISolone 40MG 1ML VIAL IV SCH ×2 (00:58→11:55)
[2023-04-20] MEDS: tiZANidine 4 MG TAB PO SCH ×4 (01:55→21:06)
[2023-04-20] MEDS: VERAPAMIL 40 MG TAB PO SCH ×3 (06:37→21:07)
[2023-04-20 07:55] LABS: BASO % 0.1 % (0.0-1.0); HEMATOCRIT 45.4 % (42.0-52.0); HEMOGLOBIN 15.2 g/dl (13.5-17.5); LYMPH # 0.5 10^3/uL (1.5-5.0); LYMPH % 4.1 % (24.0-44.0); MEAN CORPUSCULAR HEMOGLOBIN 30.5 pg (27.0-33.0); MEAN CORPUSCULAR HGB CONC 33.5 g/dl (32.0-36.5); MEAN CORPUSCULAR VOLUME 91.2 fl (80.0-96.0); MONO # 0.3 10^3/uL (0.0-0.8); NEUTROPHILS # 12.2 10^3/uL (1.5-8.5); NEUTROPHILS % 93.3 % (36.0-66.0); PLATELET COUNT, AUTOMATED 178 10^3/uL (150-450); RED BLOOD COUNT 4.98 10^6/uL (4.30-6.10)
[2023-04-20 08:19] LABS: CALCIUM LEVEL 8.1 MG/DL (8.5-10.1); CREATININE FOR GFR 1.42 MG/DL (0.70-1.30); GLOMERULAR FILTRATION RATE 54.5 (>56); POTASSIUM SERUM 4.3 MMOL/L (3.5-5.1)
[2023-04-20] MEDS: HEPARIN SOD (PORCINE) 5000UNITS/ML 1ML VIAL/SYRINGE SC SCH ×2 (10:06→21:00)
[2023-04-20] MEDS: cefTRIAXone SOD 2 GM in D5W MINI-BAG PLUS 50 ML IV SCH (10:07)
[2023-04-20] MEDS: NIRMATRELVIR/RITONAVIR (RENAL) CO-PACK (EUA) PO SCH ×2 (10:09→21:08)
[2023-04-20] MEDS: DOXYCYCLINE HYCLATE 100MG TABLET PO SCH ×2 (10:10→21:07)
[2023-04-20] MEDS: guaiFENesin ER TABLET 600 MG TAB PO SCH ×2 (10:10→21:00)
[2023-04-20] MEDS: CARVedilol 12.5 MG TAB PO SCH ×2 (10:16→21:07)
[2023-04-20 11:49] LABS: VANCOMYCIN RANDOM 10.7 UG/ML
[2023-04-20] MEDS: NS 1,000 ML IV SCH (11:56)
[2023-04-20] MEDS: VANCOMYCIN HCL 750 MG, VIAL MATE ADAPTER 1 EACH in D5W 250 ML IV SCH (13:52)
[2023-04-20] MEDS ORDERED: VANCOMYCIN HCL 750 MG, VIAL MATE ADAPTER 1 EACH in D5W 250 ML IV SCH (15:00)
[2023-04-20 15:09] LABS: MYCOPLASMA PNEUMONIAE IgG 430 U/mL (0-99); MYCOPLASMA PNEUMONIAE IgM <770 U/mL (0-769)
[2023-04-20] MEDS ORDERED: VANCOMYCIN HCL 500 MG in D5W MINI-BAG PLUS 100 ML IV SCH (16:00)
[2023-04-20] MEDS: MUPIROCIN 2% OINT 22 GM TUBE TOP SCH (21:08)
[2023-04-21] VITALS (10 sets, daily range): BP systolic 137–210; BP diastolic 72–92; TEMP 97–98; O2SAT 93–96
[2023-04-21] MEDS: MOM 30ML SUSPENSION UDC PO PRN (01:12)
[2023-04-21] MEDS: VANCOMYCIN HCL 750 MG, VIAL MATE ADAPTER 1 EACH in D5W 250 ML IV SCH ×2 (01:12→14:17)
[2023-04-21] MEDS: VERAPAMIL 40 MG TAB PO SCH ×3 (06:12→22:21)
[2023-04-21 08:29] LABS: BASO % 0.2 % (0.0-1.0); HEMATOCRIT 45.9 % (42.0-52.0); HEMOGLOBIN 15.2 g/dl (13.5-17.5); LYMPH # 0.8 10^3/uL (1.5-5.0); LYMPH % 3.9 % (24.0-44.0); MEAN CORPUSCULAR HEMOGLOBIN 30.8 pg (27.0-33.0); MEAN CORPUSCULAR HGB CONC 33.1 g/dl (32.0-36.5); MEAN CORPUSCULAR VOLUME 93.1 fl (80.0-96.0); MONO # 0.6 10^3/uL (0.0-0.8); MONO % 3.2 % (2.0-8.0); NEUTROPHILS # 17.6 10^3/uL (1.5-8.5); PLATELET COUNT, AUTOMATED 198 10^3/uL (150-450); RED BLOOD COUNT 4.93 10^6/uL (4.30-6.10); WHITE BLOOD COUNT 19.3 10^3/uL (4.0-10.0)
[2023-04-21 08:51] LABS: BLOOD UREA NITROGEN 21 MG/DL (9-23); CALCIUM LEVEL 8.4 MG/DL (8.5-10.1); CARBON DIOXIDE LEVEL 32 MMOL/L (20-31); CHLORIDE LEVEL 107 MMOL/L (98-107); CREATININE FOR GFR 1.19 MG/DL (0.70-1.30); GLOMERULAR FILTRATION RATE > 60.0 (>56); GLUCOSE, FASTING 166 MG/DL (60-100); POTASSIUM SERUM 4.3 MMOL/L (3.5-5.1); SODIUM LEVEL 143 MMOL/L (136-145)
[2023-04-21] MEDS ORDERED: predniSONE 10MG TAB PO SCH (09:00)
[2023-04-21] MEDS: NIRMATRELVIR/RITONAVIR (RENAL) CO-PACK (EUA) PO SCH ×2 (10:13→20:44)
[2023-04-21] MEDS: MUPIROCIN 2% OINT 22 GM TUBE TOP SCH ×2 (10:13→20:38)
[2023-04-21] MEDS: **hydrALAZINE** 10 MG TAB PO SCH ×2 (10:14→20:37)
[2023-04-21] MEDS: guaiFENesin ER TABLET 600 MG TAB PO SCH ×2 (10:14→20:44)
[2023-04-21] MEDS: SENOKOT S TAB PO SCH ×2 (10:14→20:36)
[2023-04-21] MEDS: tiZANidine 4 MG TAB PO SCH ×2 (10:14→14:25)
[2023-04-21] MEDS: HEPARIN SOD (PORCINE) 5000UNITS/ML 1ML VIAL/SYRINGE SC SCH ×2 (10:15→21:00)
[2023-04-21] MEDS: DOXYCYCLINE HYCLATE 100MG TABLET PO SCH ×2 (10:15→20:37)
[2023-04-21] MEDS: cefTRIAXone SOD 2 GM in D5W MINI-BAG PLUS 50 ML IV SCH (10:15)
[2023-04-21] MEDS: CARVedilol 12.5 MG TAB PO SCH ×2 (10:15→20:37)
[2023-04-21] MEDS: VANCOMYCIN HCL 500 MG in D5W MINI-BAG PLUS 100 ML IV SCH (14:17)
[2023-04-21] MEDS ORDERED: ALBUTEROL 90 MCG/ACT 8GM HFA INHALER INH PRN (17:10)
[2023-04-21 17:29] LABS: CK-MB VALUE MASS 2.4 NG/ML (<3.6)
[2023-04-21 17:37] LABS: MB/CK RELATIVE INDEX 1.24 (< OR =4)
[2023-04-21] MEDS ORDERED: hydrALAZINE 20MG/ML 1ML VIAL IV ONE (22:45)
[2023-04-22] VITALS (8 sets, daily range): BP systolic 132–196; BP diastolic 68–98; TEMP 97.4–98.8; O2SAT 94–95
[2023-04-22] MEDS: VANCOMYCIN HCL 750 MG, VIAL MATE ADAPTER 1 EACH in D5W 250 ML IV SCH (01:34)
[2023-04-22] MEDS: tiZANidine 4 MG TAB PO SCH ×4 (02:49→23:59)
[2023-04-22] MEDS: VANCOMYCIN HCL 500 MG in D5W MINI-BAG PLUS 100 ML IV SCH (02:49)
[2023-04-22] MEDS: VERAPAMIL 40 MG TAB PO SCH ×3 (06:05→20:52)
[2023-04-22 08:21] LABS: BASO % 0.1 % (0.0-1.0); EOS % 0.1 % (0.0-3.0); HEMOGLOBIN 16.7 g/dl (13.5-17.5); LYMPH # 2.3 10^3/uL (1.5-5.0); LYMPH % 11.1 % (24.0-44.0); MEAN CORPUSCULAR HEMOGLOBIN 30.3 pg (27.0-33.0); MEAN CORPUSCULAR HGB CONC 32.7 g/dl (32.0-36.5); MEAN CORPUSCULAR VOLUME 92.4 fl (80.0-96.0); MONO # 1.3 10^3/uL (0.0-0.8); MONO % 6.1 % (2.0-8.0); NEUTROPHILS % 82.2 % (36.0-66.0); PLATELET COUNT, AUTOMATED 239 10^3/uL (150-450); RED BLOOD COUNT 5.52 10^6/uL (4.30-6.10); WHITE BLOOD COUNT 20.8 10^3/uL (4.0-10.0)
[2023-04-22 08:44] LABS: BLOOD UREA NITROGEN 19 MG/DL (9-23); CALCIUM LEVEL 8.7 MG/DL (8.5-10.1); CARBON DIOXIDE LEVEL 35 MMOL/L (20-31); CHLORIDE LEVEL 101 MMOL/L (98-107); CREATININE FOR GFR 1.09 MG/DL (0.70-1.30); GLOMERULAR FILTRATION RATE > 60.0 (>56); GLUCOSE, FASTING 99 MG/DL (60-100); POTASSIUM SERUM 4.2 MMOL/L (3.5-5.1); SODIUM LEVEL 140 MMOL/L (136-145)
[2023-04-22] MEDS ORDERED: BISACODYL 10MG SUPP PR PRN (08:50)
[2023-04-22] MEDS ORDERED: MAGNESIUM CITRATE 300ML BTL PO ONE (09:15)
[2023-04-22] MEDS: NIRMATRELVIR/RITONAVIR (RENAL) CO-PACK (EUA) PO SCH ×2 (10:04→21:29)
[2023-04-22] MEDS: DOXYCYCLINE HYCLATE 100MG TABLET PO SCH ×2 (10:05→20:50)
[2023-04-22] MEDS: guaiFENesin ER TABLET 600 MG TAB PO SCH ×2 (10:05→20:51)
[2023-04-22] MEDS: MUPIROCIN 2% OINT 22 GM TUBE TOP SCH ×2 (10:05→20:54)
[2023-04-22] MEDS: MOM 30ML SUSPENSION UDC PO PRN (10:05)
[2023-04-22] MEDS: cefTRIAXone SOD 2 GM in D5W MINI-BAG PLUS 50 ML IV SCH (10:06)
[2023-04-22] MEDS: **hydrALAZINE HCL** 25 MG TAB PO SCH ×3 (10:06→20:52)
[2023-04-22] MEDS: SENOKOT S TAB PO SCH ×2 (10:06→20:55)
[2023-04-22] MEDS: CARVedilol 12.5 MG TAB PO SCH ×2 (10:06→20:51)
[2023-04-22] MEDS: HEPARIN SOD (PORCINE) 5000UNITS/ML 1ML VIAL/SYRINGE SC SCH ×2 (10:07→20:50)
[2023-04-22] MEDS: VANCOMYCIN HCL 1,000 MG, VIAL MATE ADAPTER 1 EACH in D5W 250 ML IV SCH ×2 (14:54→20:49)
[2023-04-23 04:04] VITALS: BP 120/78; TEMP 97.8; O2SAT 94
[2023-04-23] MEDS: VANCOMYCIN HCL 1,000 MG, VIAL MATE ADAPTER 1 EACH in D5W 250 ML IV SCH (05:43)
[2023-04-23] MEDS: VERAPAMIL 40 MG TAB PO SCH (05:50)
[2023-04-23 06:18] LABS: BASO % 0.1 % (0.0-1.0); EOS % 0.2 % (0.0-3.0); HEMATOCRIT 48.2 % (42.0-52.0); HEMOGLOBIN 16.1 g/dl (13.5-17.5); LYMPH # 2.4 10^3/uL (1.5-5.0); LYMPH % 16.5 % (24.0-44.0); MEAN CORPUSCULAR HEMOGLOBIN 30.7 pg (27.0-33.0); MEAN CORPUSCULAR HGB CONC 33.4 g/dl (32.0-36.5); MEAN CORPUSCULAR VOLUME 91.8 fl (80.0-96.0); MONO # 1.2 10^3/uL (0.0-0.8); NEUTROPHILS # 10.8 10^3/uL (1.5-8.5); NEUTROPHILS % 74.6 % (36.0-66.0); PLATELET COUNT, AUTOMATED 209 10^3/uL (150-450); RED BLOOD COUNT 5.25 10^6/uL (4.30-6.10); WHITE BLOOD COUNT 14.5 10^3/uL (4.0-10.0)
[2023-04-23 06:55] LABS: BLOOD UREA NITROGEN 19 MG/DL (9-23); CALCIUM LEVEL 8.4 MG/DL (8.5-10.1); CARBON DIOXIDE LEVEL 36 MMOL/L (20-31); CHLORIDE LEVEL 100 MMOL/L (98-107); CREATININE FOR GFR 1.19 MG/DL (0.70-1.30); GLOMERULAR FILTRATION RATE > 60.0 (>56); GLUCOSE, FASTING 93 MG/DL (60-100); MAGNESIUM LEVEL 2.1 MG/DL (1.8-2.4); POTASSIUM SERUM 3.9 MMOL/L (3.5-5.1); SODIUM LEVEL 140 MMOL/L (136-145)
[2023-04-23 08:00] VITALS: BP 170/84; TEMP 97.4; O2SAT 93
[2023-04-23] MEDS: HEPARIN SOD (PORCINE) 5000UNITS/ML 1ML VIAL/SYRINGE SC SCH (09:00)
[2023-04-23] MEDS ORDERED: MAGNESIUM CITRATE 300ML BTL PO ONE (09:00)
[2023-04-23] MEDS: cefTRIAXone SOD 2 GM in D5W MINI-BAG PLUS 50 ML IV SCH (10:07)
[2023-04-23 10:09] VITALS: BP 170/84
[2023-04-23] MEDS: DOXYCYCLINE HYCLATE 100MG TABLET PO SCH (10:09)
[2023-04-23] MEDS: tiZANidine 4 MG TAB PO SCH (10:09)
[2023-04-23] MEDS: NIRMATRELVIR/RITONAVIR (RENAL) CO-PACK (EUA) PO SCH (10:09)
[2023-04-23] MEDS: CARVedilol 12.5 MG TAB PO SCH (10:09)
[2023-04-23] MEDS: MUPIROCIN 2% OINT 22 GM TUBE TOP SCH (10:10)
[2023-04-23] MEDS: **hydrALAZINE HCL** 25 MG TAB PO SCH (10:10)
[2023-04-23 10:59] LABS: PROCALCITONIN 0.16 ng/ml
[2023-04-23 12:36] VITALS: BP 128/72
[2023-04-23] MEDS ORDERED: DOXY100T PO (12:53)
[2023-04-23] MEDS ORDERED: HYDR50TA PO (12:53)
[2023-04-23] MEDS ORDERED: CEFD300CAP PO (12:53)
[2023-04-23] MEDS ORDERED: **hydrALAZINE** 50 MG TAB PO SCH (16:00)
[2023-04-24] MEDS ORDERED: CEFDINIR 300 MG CAP (OMNICEF) PO SCH (09:00)
== END 2023-04-23 15:22 | disposition home or self-care (01) | DRG 137 ==
LOC: M ED 08:05 → EDBD 08:05 → M ED INP 11:41 → M PCU 16:28
PROVIDERS: ADMIT Student in an Organized Health Care Education/Training Program; ATTEND Student in an Organized Health Care Education/Training Program
DX: J15.212 Pneumonia due to Methicillin resistant Staphylococcus aureus (principal); U07.1 COVID-19; N17.9 Acute kidney failure, unspecified; K58.9 Irritable bowel syndrome, unspecified; F32.A Depression, unspecified; E78.5 Hyperlipidemia, unspecified; G47.33 Obstructive sleep apnea (adult) (pediatric); M79.7 Fibromyalgia; I10 Essential (primary) hypertension; J98.11 Atelectasis; K59.00 Constipation, unspecified; R00.1 Bradycardia, unspecified; Z79.899 Other long term (current) drug therapy; Z88.8 Allergy status to other drugs, medicaments and biological substances; Z91.013 Allergy to seafood

== ENCOUNTER → 2023-05-22 | Outpatient (CLI) | payer OTHER ==
[~2023-05-22] MED LIST changes: +CEFD300CAP PO; +DOXY100T PO; +HYDR50TA47 PO; +TRAZ-257 PO
[2023-05-22 13:23] LABS: BASO # 0.1 10^3/uL (0.0-0.2); BASO % 1.2 % (0.0-1.0); EOS # 0.2 10^3/uL (0.0-0.5); HEMATOCRIT 45.9 % (42.0-52.0); HEMOGLOBIN 15.1 g/dl (13.5-17.5); LYMPH # 2.3 10^3/uL (1.5-5.0); LYMPH % 26.8 % (24.0-44.0); MEAN CORPUSCULAR HEMOGLOBIN 30.5 pg (27.0-33.0); MEAN CORPUSCULAR HGB CONC 32.9 g/dl (32.0-36.5); MEAN CORPUSCULAR VOLUME 92.7 fl (80.0-96.0); MONO # 0.8 10^3/uL (0.0-0.8); NEUTROPHILS # 5.2 10^3/uL (1.5-8.5); NEUTROPHILS % 60.6 % (36.0-66.0); PLATELET COUNT, AUTOMATED 246 10^3/uL (150-450); RED BLOOD COUNT 4.95 10^6/uL (4.30-6.10); WHITE BLOOD COUNT 8.6 10^3/uL (4.0-10.0)
[2023-05-22 13:58] LABS: PSA SCREENING 0.39 NG/ML (< 4.00)
[2023-05-22 14:02] LABS: THYROID STIMULATING HORMONE 2.011 uIU/ML (0.55-4.78)
[2023-05-22 14:06] LABS: ALBUMIN 3.3 G/DL (3.2-5.2); ALKALINE PHOSPHATASE 65 U/L (46-116); ALT/SGPT 19 U/L (7.0-40); AST/SGOT 17 U/L (<34); BILIRUBIN,TOTAL 0.5 MG/DL (0.3-1.2); BLOOD UREA NITROGEN 14 MG/DL (9-23); CALCIUM LEVEL 8.6 MG/DL (8.5-10.1); CARBON DIOXIDE LEVEL 31 MMOL/L (20-31); CHLORIDE LEVEL 106 MMOL/L (98-107); CHOLESTEROL LEVEL 192 MG/DL (<200); CHOLESTEROL RISK RATIO 5.36 (<5); CREATININE FOR GFR 1.24 MG/DL (0.70-1.30); GLOMERULAR FILTRATION RATE > 60.0 (>56); GLUCOSE, FASTING 92 MG/DL (60-100); HDL CHOLESTEROL 35.8 MG/DL (>40); LDL CHOLESTEROL 112.6 MG/DL (<100); NON-HDL-C 156.2 MG/DL; POTASSIUM SERUM 4.1 MMOL/L (3.5-5.1); SODIUM LEVEL 143 MMOL/L (136-145); TOTAL PROTEIN 6.5 G/DL (5.7-8.2); TRIGLYCERIDES LEVEL 218 MG/DL (<150)
== END ==
LOC: M LAB 12:11
PROVIDERS: ATTEND Physician Assistant
DX: E55.9 Vitamin D deficiency, unspecified (principal); I10 Essential (primary) hypertension; E78.2 Mixed hyperlipidemia; Z12.5 Encounter for screening for malignant neoplasm of prostate

== ENCOUNTER → 2023-05-29 | Outpatient (CLI) | payer OTHER | LOC: M RAD 11:19 | PROVIDERS: ATTEND Physician Assistant | DX: J15.212 Pneumonia due to Methicillin resistant Staphylococcus aureus (principal) ==

== ENCOUNTER → 2023-09-08 | Outpatient (CLI) | payer OTHER ==
[~2023-09-08] MED LIST changes: +DOXY-323 PO; -DOXY-443 PO
[2023-09-08 10:46] LABS: BASO # 0.1 10^3/uL (0.0-0.2); BASO % 1.2 % (0.0-1.0); EOS # 0.2 10^3/uL (0.0-0.5); EOS % 2.6 % (0.0-3.0); HEMOGLOBIN 15.8 g/dl (13.5-17.5); LYMPH % 28.6 % (24.0-44.0); MEAN CORPUSCULAR HEMOGLOBIN 30.9 pg (27.0-33.0); MEAN CORPUSCULAR HGB CONC 34.3 g/dl (32.0-36.5); MEAN CORPUSCULAR VOLUME 89.8 fl (80.0-96.0); MONO # 0.6 10^3/uL (0.0-0.8); MONO % 9.3 % (2.0-8.0); NEUTROPHILS % 58.2 % (36.0-66.0); PLATELET COUNT, AUTOMATED 214 10^3/uL (150-450); RED BLOOD COUNT 5.12 10^6/uL (4.30-6.10); WHITE BLOOD COUNT 6.9 10^3/uL (4.0-10.0)
[2023-09-08 10:48] LABS: APPEARANCE, URINE CLEAR (CLEAR); BACTERIA, URINE AUTO NEGATIVE (NEGATIVE); BILIRUBIN, URINE AUTO NEGATIVE (NEGATIVE); BLOOD, URINE BLOOD NEGATIVE (NEGATIVE); COLOR, URINE YELLOW (YELLOW); GLUCOSE, URINE (UA) AUTO NEGATIVE (NEGATIVE); KETONE, URINE AUTO NEGATIVE (NEGATIVE); LEUKOCYTE ESTERASE, URINE AUTO NEGATIVE (NEGATIVE); MUCUS, URINE SMALL (NEGATIVE); NITRITE, URINE AUTO NEGATIVE (NEGATIVE); PROTEIN, URINE AUTO 3+ mg/dL (NEGATIVE); RBC, URINE AUTO 1 /HPF (0-3); SPECIFIC GRAVITY URINE AUTO 1.015 (1.002-1.035); SQUAMOUS EPITHELIAL CELL UR AU 0 /HPF (0-6); UROBILINOGEN, URINE AUTO 0.2 mg/dL (0.0-2.0); WBC, URINE AUTO 1 /HPF (0-3)
[2023-09-08 11:14] LABS: PSA SCREENING 0.26 NG/ML (< 4.00)
[2023-09-08 11:16] LABS: ALBUMIN 3.4 G/DL (3.2-5.2); ALKALINE PHOSPHATASE 68 U/L (46-116); ALT/SGPT 21 U/L (7.0-40); AST/SGOT 18 U/L (<34); BILIRUBIN,TOTAL 0.6 MG/DL (0.3-1.2); BLOOD UREA NITROGEN 13 MG/DL (9-23); CALCIUM LEVEL 8.6 MG/DL (8.5-10.1); CARBON DIOXIDE LEVEL 29 MMOL/L (20-31); CHLORIDE LEVEL 109 MMOL/L (98-107); CHOLESTEROL LEVEL 168 MG/DL (<200); CHOLESTEROL RISK RATIO 4.57 (<5); CREATININE FOR GFR 1.16 MG/DL (0.70-1.30); GLOMERULAR FILTRATION RATE > 60.0 (>56); GLUCOSE, FASTING 102 MG/DL (60-100); HDL CHOLESTEROL 36.7 MG/DL (>40); LDL CHOLESTEROL 105.1 MG/DL (<100); NON-HDL-C 131.3 MG/DL; POTASSIUM SERUM 4.1 MMOL/L (3.5-5.1); SODIUM LEVEL 142 MMOL/L (136-145); TOTAL PROTEIN 6.3 G/DL (5.7-8.2); TRIGLYCERIDES LEVEL 131 MG/DL (<150)
[2023-09-08 11:54] LABS: Trichomonas vaginalis (AMP) NOT DETECTED (NEGATIVE)
[2023-09-08 12:18] LABS: GC DNA AMPLIFICATION NEGATIVE (NEGATIVE)
== END ==
LOC: M LAB 10:09
PROVIDERS: ATTEND Physician Assistant
DX: E55.9 Vitamin D deficiency, unspecified (principal); I10 Essential (primary) hypertension; E78.2 Mixed hyperlipidemia; R10.2 Pelvic and perineal pain

== ENCOUNTER 2023-10-14 18:02 | Emergency (ER) | payer OTHER ==
[~2023-10-14] VITALS: Ht 177.8 cm; Wt 109.5 kg
[2023-10-14] MEDS ORDERED: TIZA10TA (18:20)
[2023-10-14 18:24] LABS: BASO # 0.1 10^3/uL (0.0-0.2); BASO % 0.7 % (0.0-1.0); EOS # 0.2 10^3/uL (0.0-0.5); EOS % 1.7 % (0.0-3.0); HEMATOCRIT 47.3 % (42.0-52.0); HEMOGLOBIN 16.5 g/dl (13.5-17.5); LYMPH # 1.9 10^3/uL (1.5-5.0); LYMPH % 15.6 % (24.0-44.0); MEAN CORPUSCULAR HEMOGLOBIN 31.3 pg (27.0-33.0); MEAN CORPUSCULAR HGB CONC 34.9 g/dl (32.0-36.5); MEAN CORPUSCULAR VOLUME 89.8 fl (80.0-96.0); MONO # 0.7 10^3/uL (0.0-0.8); MONO % 6.1 % (2.0-8.0); NEUTROPHILS % 75.6 % (36.0-66.0); PLATELET COUNT, AUTOMATED 214 10^3/uL (150-450); RED BLOOD COUNT 5.27 10^6/uL (4.30-6.10)
[2023-10-14 19:02] LABS: ALBUMIN 3.9 G/DL (3.2-5.2); ALKALINE PHOSPHATASE 84 U/L (46-116); ALT/SGPT 28 U/L (7.0-40); AST/SGOT 22 U/L (<34); BILIRUBIN,DIRECT 0.4 MG/DL (<0.4); BILIRUBIN,TOTAL 1.2 MG/DL (0.3-1.2); BLOOD UREA NITROGEN 22 MG/DL (9-23); CALCIUM LEVEL 8.8 MG/DL (8.5-10.1); CARBON DIOXIDE LEVEL 28 MMOL/L (20-31); CHLORIDE LEVEL 105 MMOL/L (98-107); CK-MB VALUE MASS 3.6 NG/ML (<3.6); CPK CREATINE PHOSPHOKINASE 220 U/L (46-171); CREATININE FOR GFR 1.09 MG/DL (0.70-1.30); GLOMERULAR FILTRATION RATE > 60.0 (>56); GLUCOSE, FASTING 115 MG/DL (60-100); MB/CK RELATIVE INDEX 1.63 (< OR =4); POTASSIUM SERUM 4.1 MMOL/L (3.5-5.1); SODIUM LEVEL 138 MMOL/L (136-145); TOTAL PROTEIN 5.9 G/DL (5.7-8.2)
[2023-10-14 20:20] LABS: CK-MB VALUE MASS 3.2 NG/ML (<3.6); MB/CK RELATIVE INDEX 1.57 (< OR =4)
[2023-10-14] MEDS ORDERED: ISOVUE-370 76% 100ML VIAL As Ordered ONE (20:46)
[2023-10-14] MEDS: hydrALAZINE 20MG/ML 1ML VIAL IV ONE (20:54)
[2023-10-14 21:38] LABS: CK-MB VALUE MASS 3.7 NG/ML (<3.6)
[2023-10-14 21:43] LABS: MB/CK RELATIVE INDEX 1.93 (< OR =4)
[2023-10-14] MEDS ORDERED: HEPARIN SOD (PORCINE) 5000UNITS/ML 1ML VIAL/SYRINGE IV PRN (22:05)
[2023-10-14] MEDS: HEPARIN SOD (PORCINE) 5000UNITS/ML 1ML VIAL/SYRINGE IV ONE (22:33)
[2023-10-14] MEDS: HEPARIN DRIP 25,000 UNITS in IV 1 EA IV SCH (22:34)
[2023-10-14 23:08] VITALS: BP 185/94
[2023-10-14 23:30] VITALS: TEMP 97.8
[2023-10-15] VITALS: BP 171/83; O2SAT 97
== END 2023-10-15 00:09 | disposition short-term general hospital (02) ==
LOC: EDBD 18:02 → M ED 18:02
DX: I21.4 Non-ST elevation (NSTEMI) myocardial infarction (principal); R07.9 Chest pain, unspecified; I10 Essential (primary) hypertension; E78.5 Hyperlipidemia, unspecified; F10.10 Alcohol abuse, uncomplicated; Z88.2 Allergy status to sulfonamides; Z91.013 Allergy to seafood; Z79.899 Other long term (current) drug therapy
CPT/HCPCS: 71045; 71275; 80048; 80076; 82550; 82553; 84484; 85025; 85730; 93005; 93041; 94760; 96374; 96375; 99285; J0360; Q9967

== ENCOUNTER → 2024-08-26 | Outpatient (CLI) | payer OTHER ==
[~2024-08-26] MED LIST changes: -AMBI10TA PO; -AMBI12.52 PO; -DOXY-323 PO; +DOXY-441 PO; +TIZA10TA; +ZOLP-533 PO; +ZOLP12.561 PO
[2024-08-26 13:40] LABS: BASO # 0.1 10^3/uL (0.0-0.2); BASO % 1.1 % (0.0-1.0); EOS # 0.2 10^3/uL (0.0-0.5); EOS % 2.8 % (0.0-3.0); HEMATOCRIT 45.3 % (42.0-52.0); HEMOGLOBIN 15.2 g/dl (13.5-17.5); LYMPH # 1.6 10^3/uL (1.5-5.0); LYMPH % 25.1 % (24.0-44.0); MEAN CORPUSCULAR HEMOGLOBIN 30.9 pg (27.0-33.0); MEAN CORPUSCULAR HGB CONC 33.6 g/dl (32.0-36.5); MEAN CORPUSCULAR VOLUME 92.1 fl (80.0-96.0); MONO # 0.6 10^3/uL (0.0-0.8); MONO % 8.9 % (2.0-8.0); NEUTROPHILS % 61.9 % (36.0-66.0); PLATELET COUNT, AUTOMATED 200 10^3/uL (150-450); RED BLOOD COUNT 4.92 10^6/uL (4.30-6.10); WHITE BLOOD COUNT 6.5 10^3/uL (4.0-10.0)
[2024-08-26 14:07] LABS: ALBUMIN 3.5 G/DL (3.2-5.2); BILIRUBIN,TOTAL 0.8 MG/DL (0.3-1.2); CALCIUM LEVEL 8.7 MG/DL (8.3-10.6); CHOLESTEROL RISK RATIO 5.14 (<5); CREATININE FOR GFR 1.25 MG/DL (0.70-1.30); GLOMERULAR FILTRATION RATE 65.9 (>49); HDL CHOLESTEROL 33.8 MG/DL (>40); LDL CHOLESTEROL 109.4 MG/DL (<100); NON-HDL-C 140.2 MG/DL; POTASSIUM SERUM 3.9 MMOL/L (3.5-5.1); TOTAL PROTEIN 6.5 G/DL (5.7-8.2)
[2024-08-26 14:08] LABS: THYROID STIMULATING HORMONE 1.541 uIU/ML (0.55-4.78)
[2024-08-26 14:09] LABS: TOTAL 25(OH) VITAMIN D 41.3 NG/ML (20.0-100.0)
[2024-08-26 14:10] LABS: FREE T4 1.26 NG/DL (0.89-1.76)
[2024-08-26 14:49] LABS: HEMOGLOBIN A1c 5.6 % (4.0-6.0)
== END ==
LOC: M LAB 12:56
PROVIDERS: ATTEND Family Medicine
DX: Z00.00 Encounter for general adult medical examination without abnormal findings (principal)

== ENCOUNTER → 2024-10-09 | Outpatient (REF) | payer OTHER ==
[~2024-10-09] MED LIST changes: -IBUP-1022 PO; +IBUP600T42 PO
== END ==
LOC: M SFHCLERA 17:28
PROVIDERS: ATTEND Family Medicine
DX: R30.0 Dysuria (principal)